=== PATIENT | male | born 1975 | race Caucasian/White ===

== ENCOUNTER 2020-01-30 07:34 | Outpatient (REF) | payer OTHER, SELFPAY ==
--- NOTE | 2020-01-30 07:37 | CT_ITS ---
EXAMINATION: CT ABDOMEN AND PELVIS WITHOUT CONTRAST CLINICAL INFORMATION: Renal calculus COMPARISON: CT abdomen and pelvis with IV contrast 12/20/2019, CT abdomen and pelvis noncontrast 12/15/2019. TECHNIQUE: Multidetector volumetric imaging was performed from the superior aspect of the liver through the pubic symphysis. Sagittal and coronal reformatted images were obtained on the technologist's workstation. No oral or intravenous contrast. This CT examination was performed using dose optimization techniques as appropriate, variously including the following: *Automated exposure control *Adjustment of mA and/or kV according to patient size (this includes techniques or standardized protocols for targeted exams where dose is matched to indication/reason for exam; i.e. extremities or head) *Use of iterative reconstruction technique DLP: 454 mGy-cm FINDINGS: LUNG BASES: The visualized lung bases are unremarkable. LIVER, GALLBLADDER, AND BILIARY TREE: The liver is normal in size, shape, and attenuation. No focal hepatic lesion or biliary ductal dilatation is present. The gallbladder is unremarkable with no evidence of radiopaque gallstones, gallbladder wall thickening, or obvious pericholecystic inflammatory changes. PANCREAS: Unremarkable. SPLEEN: Unremarkable. ADRENAL GLANDS: Unremarkable. KIDNEYS AND URETERS: There is a punctate nonobstructing calculus interpolar left kidney under 4 mm, coronal image 82, axial series 6/242. There are no other urinary tract calculi. No hydronephrosis, hydroureter, or perinephric stranding. The kidneys are normal in size and smooth in contour. There are several small cysts on the right, largest approximately 1.5 cm. BLADDER: Unremarkable. GASTROINTESTINAL TRACT: No bowel obstruction or inflammatory changes in the bowel or mesentery. Normal appendix. No ascites or fluid collection. There are stable benign coarse linear calcifications near the peritoneal reflections bilateral anterior lower quadrant similar to prior studies. ABDOMINAL WALL: Borderline fat-containing umbilical hernia under 2 cm. LYMPH NODES: No lymphadenopathy. VASCULAR: Unremarkable. PELVIC VISCERA: Unremarkable. OSSEOUS STRUCTURES: Unremarkable. CT/CT abdomen pelvis wo con IMPRESSION: Punctate nonobstructing calculus interpolar left kidney. No hydronephrosis, hydroureter, or perinephric stranding.
== END 2020-01-30 07:35 | disposition home or self-care (01) ==
LOC: HO.CT 07:34
PROVIDERS: PCP Internal Medicine; Visit Provider Urology
DX: N20.0 Calculus of kidney (principal)
CPT/HCPCS: 74176

== ENCOUNTER 2020-10-24 21:21 | Emergency (ER) | payer MEDICAID, SELFPAY ==
[2020-10-24 21:28] VITALS: BP 130/89; PULSE 99; RESP 20; TEMP 37.3; O2SAT 98; BMI 27.0
--- NOTE | 2020-10-24 21:54 | ED_ITS ---
HPI - General Adult General Chief complaint: Animal Bite Stated complaint: BITE Time Seen by Provider: 10/24/20 21:48 Source: patient Mode of arrival: ambulatory Limitations: no limitations History of Present Illness HPI narrative: Patient comes emergency room after finding a tick in his right thigh. Patient noticed the tick approximately 30 minutes prior to arrival. Patient states that he thinks that the tick might have been there for over 24 hours. Patient was in [facility] over the weekend, thinks that is where he got it. Patient has no symptoms. His removed the tick, came out with the head Related Data Allergies Allergy/AdvReac Type Severity Reaction Status Date / Time lactose [LACTOSE] Allergy Unknown DIARRHEA Verified 10/24/20 21:28 Review of Systems Review of Systems: Constitutional : No Weight loss, No Fever, No Chills, No Night Sweats, No Fatigue, No Malaise ENT/Mouth : No Hearing loss, No Ear Pain, No Nasal Congestion, No Sinus Pain, No Hoarseness, No sore throat, No Rhinorrhea, No Swallowing Difficulty Eyes: No Eye Pain, No Swelling, No Redness, No Foreign Body, No Discharge, No Vision Changes Cardiovascular : No Chest Pain, No SOB, No Dyspnea on Exertion, No Orthopnea, No Edema, No Palpitations Respiratory : No Cough, No Sputum, No Wheezing, No Smoke Exposure, No Dyspnea Gastrointestinal : No Nausea, No Vomiting, No Diarrhea, No Constipation, No abdominal Pain, No Hematochezia, No Melena Genitourinary : no irregular bleeding, No Dysuria, No Urinary Frequency, No Hematuria, No Urinary Incontinence, No Urgency, No Flank Pain, No Urinary Flow Changes, No Hesitancy Musculoskeletal : No joint pain, No Myalgias, No Joint Swelling Skin : No Skin Lesions, found tick in the right thigh Neuro : No Weakness, No Numbness, No Paresthesias, No Loss of Consciousness, No Dizziness, No Headache Psych : No Anxiety/Panic, No Depression, No SI/HI/AH/VH, No Social Issues, Heme/Lymph: No Bruising, No Bleeding,No Lymphadenopathy Endocrine : No Polyuria, No Polydipsia, No Temperature Intolerance [facility] Past Medical History Medical History [place] Surgical History History of Blanka fundoplication Social History Social History Advance Directives: No Advance Directives Information Provided: Yes Physical Exam Vital Signs: Vital Signs: Last Vital Signs Temp 99.1 F 10/24/20 21:28 Pulse 99 10/24/20 21:28 Resp 20 10/24/20 21:28 BP 130/89 10/24/20 21:28 Pulse Ox 98 10/24/20 21:28 Body Mass Index 27.0 Appearance: Alert. Oriented X3. No acute distress. Eyes: Pupils equal, round and reactive to light. ENT: Pharynx normal. Neck: Normal inspection. Neck supple. No lymph nodes noted. No crepitus CVS: Normal heart rate and rhythm. Pulses normal. Normal S1 and S2 Respiratory: No respiratory distress. Breath sounds normal. No Wheezing. No rales Abdomen: Soft and nontender. No rigidity. No distention. good BS x4 Skin: Skin warm and dry. Very mild petechial rash around the site where he found the tick, no erythema Extremities: No lower extremity edema. No lower extremity edema. No Lacer ations. No Rash Neuro: Oriented X 3. No motor deficit. No sensory deficit. Moving all extermities. No slurred speech. Course Course Course Narrative: I discussed with the patient that due to the insistence of Lyme disease in the area, we will go ahead and treat him prophylactically. If he develops any symptoms, he may need to get serology tests and follow-up with his primary care physician for treatment if needed. Patient was given emergency room 1 dose of 200 mg of doxycycline Discharge Plan Discharge Clinical Impression: Tick bite Qualifiers: Encounter type: initial encounter Site of tick bite: thigh Laterality: right Qualified Code(s): S70.361A - Insect bite (nonvenomous), right thigh, initial encounter Patient Disposition: Home, Self-Care Instructions: Tick Bite (ED)
== END 2020-10-24 22:05 | disposition home or self-care (01) ==
PROVIDERS: Emergency Provider Emergency Medicine; PCP Internal Medicine
DX: S70.361A Insect bite (nonvenomous), right thigh, initial encounter (principal); W57.XXXA Bitten or stung by nonvenomous insect and other nonvenomous arthropods, initial encounter; Y93.89 Activity, other specified; Y92.9 Unspecified place or not applicable; Y99.9 Unspecified external cause status
CPT/HCPCS: 99283

== ENCOUNTER 2020-11-17 11:08 | Outpatient (REF) | payer MEDICAID, SELFPAY ==
--- NOTE | ~2020-11-17 | US_ITS ---
EXAMINATION: US THYROID CLINICAL INFORMATION: Nontoxic single thyroid nodule. COMPARISON: None TECHNIQUE: Linear transducer bedoya-scale and color Doppler examination with attention to the region of the thyroid. FINDINGS: SIZE: Measurements of the thyroid lobes and nodules are given in sagittal, anteroposterior and transverse dimensions respectively. Right Thyroid Lobe: 4.8 x 1.9 x 2.2 cm, volume 10.2 mL. Parenchyma: The gland echotexture is homogeneous. Thyroid vascularity is normal. Left Thyroid Lobe: 4.7 x 1.5 x 1.6 cm, volume 5.6 mL. Parenchyma: The gland echotexture is homogeneous. Thyroid vascularity is normal. Isthmus: 0.4 cm in maximum AP dimension. Estimated total number of nodules greater than or equal to 1 cm: 0. Assistant [employer] nodules are described as follows: 1. Location: Left upper pole. Size: 0.3 x 0.2 x 0.2 cm, volume 0.005 mL. Nodule characteristics: Composition: Cystic(0). ACR TI-RADS total points: 0 ACR TI-RADS category: 1 2. Location: Left midpole. Size: 0.7 x 0.8 x 0.5 cm, volume 0.155 mL. Nodule characteristics: Composition: Solid (2). Echogenicity: Isoechoic (1). Shape: Not taller than wide (0). Margins: Smooth (0). Echogenic Foci: None (0). ACR TI-RADS total points: 3 ACR TI-RADS category: 3 3. Location: Left midpole. Size: 0.2 x 0.2 x 0.1 cm, volume 0.003 mL. Nodule characteristics: Composition: Cystic(0). Echogenicity: Anechoic (0). Shape: Not taller than wide (0). Margins: Smooth (0). Echogenic Foci: None (0). ACR TI-RADS total points: 0 ACR TI-RADS category: 1 NODES: No lymphadenopathy is seen in the tissue surrounding the thyroid gland. US/US thyroid IMPRESSION: Homogeneous thyroid parenchyma with normal vascularity. No thyromegaly. Small bilateral thyroid nodules which do not meet TI-RADS criteria for followup. The largest measures up to 0.8 cm with characteristics consistent with TI-RADS Category 3. ACR TI-RADS RECOMMENDATION REFERENCE: Ultrasound-guided fine-needle aspiration, followup ultrasound, no further followup. * TR1 (0 point) and TR 2 (2 points): No FNA or followup. * TR3 (3 points): FNA if more than or equal to 2.5 cm in maximum dimension, followup ultrasound in 1, 3 and 5 years if 1.5 to 2.4 cm in maximum dimension. * TR4 (4-6 points): FNA if more than or equal to 1.5 cm in maximum dimension, followup ultrasound in 1, 2, 3 and 5 years if 1 to 1.4 cm in maximum dimension. * TR5 (more than or equal to 7 points): FNA if more than or equal to 1 cm in maximum dimension, followup ultrasound every year for 5 years if 0.5 to 0.9 cm in maximum dimension. * TR3, TR4 or TR5 nodules that are below the size threshold for followup receive no followup.
[2020-11-17 12:51] LABS: Thyroid Stimulating Hormone 0.89 uIU/mL (0.32-4.0)
[2020-11-17 12:52] LABS: Free T4 (Free Thyroxine) 0.92 ng/dL (0.71-1.85)
== END 2020-11-17 11:09 | disposition home or self-care (01) ==
LOC: HO.US 11:08
PROVIDERS: PCP Internal Medicine; Visit Provider Physician Assistant
DX: E04.1 Nontoxic single thyroid nodule (principal)
CPT/HCPCS: 36415; 76536; 84439; 84443

== ENCOUNTER 2020-11-24 07:07 | Emergency (ER) | payer MEDICAID, SELFPAY ==
--- NOTE | ~2020-11-24 | XR_ITS ---
EXAMINATION: XR FOOT, LEFT CLINICAL INFORMATION: Left great toe pain status post blunt trauma. COMPARISON: None TECHNIQUE: AP, lateral, and oblique views of the left foot. FINDINGS: There is no acute fracture or dislocation. The joint spaces are unremarkable. The tarsal bones are normally aligned. There is a small retrocalcaneal spur. The soft tissues are unremarkable. There is no radiopaque foreign body. XR/XR foot LT min 3V IMPRESSION: 1. No overt acute abnormality in the first digit. 2. Small degenerative retrocalcaneal spur.
[2020-11-24 07:45] VITALS: BP 104/75; PULSE 96; RESP 18; TEMP 37; O2SAT 98; BMI 27.8
[2020-11-24 08:12] VITALS: BP 119/80; PULSE 78; RESP 18; TEMP 36.8; O2SAT 98
[2020-11-24 08:23] VITALS: BP 119/80; PULSE 78; RESP 18
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
== END 2020-11-24 09:43 | disposition home or self-care (01) ==
PROVIDERS: Emergency Provider Emergency Medicine; PCP Internal Medicine
DX: S93.502A Unspecified sprain of left great toe, initial encounter (principal); S90.212A Contusion of left great toe with damage to nail, initial encounter; W20.8XXA Other cause of strike by thrown, projected or falling object, initial encounter; Y93.89 Activity, other specified; Y92.9 Unspecified place or not applicable; Y99.9 Unspecified external cause status
CPT/HCPCS: 11740; 73630; 99283; 99284

== ENCOUNTER 2020-12-16 12:00 | Outpatient (REF) | payer MEDICAID, SELFPAY ==
[2020-12-17 08:30] LABS: Lyme Abs Screen <0.90 index
== END 2020-12-16 12:01 | disposition home or self-care (01) ==
LOC: HO.MANLDS 12:00
PROVIDERS: PCP Physician Assistant; Visit Provider Physician Assistant
DX: T14.8XXA Other injury of unspecified body region, initial encounter (principal); W57.XXXA Bitten or stung by nonvenomous insect and other nonvenomous arthropods, initial encounter
CPT/HCPCS: 36415; 86617; 86618

== ENCOUNTER 2021-05-05 12:14 | Outpatient (REF) | payer MEDICAID, SELFPAY ==
[2021-05-05 13:39] LABS: Appearance Urine CLEAR; Glucose Urine UA NEG (NEG); Leukocyte Esterase Urine NEG (NEG); Nitrite Urine NEG (NEG); PH 5.5 (5.0-8.0); Specific Gravity - Urine <= 1.005 (1.005-1.025); Urine Blood NEG (NEG); Urine Ketones NEG (NEG); Urine Protein NEG (NEG-TRACE)
[2021-05-05 13:41] LABS: Color Urine COLORLESS
== END 2021-05-05 12:15 | disposition home or self-care (01) ==
LOC: HO.LAB 12:14
PROVIDERS: PCP Internal Medicine; Visit Provider Physician Assistant
DX: R30.9 Painful micturition, unspecified (principal)
CPT/HCPCS: 81003

== ENCOUNTER 2021-05-13 08:38 | Outpatient (REF) | payer MEDICAID, SELFPAY ==
[2021-05-13 10:16] LABS: Alanine Aminotransferase 27 U/L (0-40); Albumin Level 4.7 g/dL (3.5-5.0); Alkaline Phosphatase 49 U/L (39-117); Anion Gap 11 (12-20); Aspartate Amino Transferase 20 U/L (5-37); Bilirubin Total 0.6 mg/dL (0.0-1.0); Blood Urea Nitrogen 13 mg/dL (9-16); Calcium 9.8 mg/dL (8.4-10.2); Carbon Dioxide 29 mmol/L (22-29); Chloride 104 mmol/L (96-108); Estimated Glomerular Filt Rate > 60; Glucose Random 97 mg/dL (60-115); Potassium 4.9 mmol/L (3.3-5.1); Sodium 139 mmol/L (135-145); Total Protein 7.4 g/dL (6.5-8.0)
[2021-05-13 12:36] LABS: Cortisol Random 8.1 ug/dL
[2021-05-14 15:51] LABS: Absolute CD3 Count 1294 cells/uL (840-3060); Absolute CD4 Count 882 cells/uL (490-1740); Absolute CD8 Count 392 cells/uL (180-1170); Absolute Lymphocytes 1847 cells/uL (850-3900); CD4 CD8 Ratio 2.25 (0.86-5.00); Percent CD3 Cells 70 % (57-85); Percent CD4 Cells 48 % (30-61); Percent CD8 Cells 21 % (12-42)
[2021-05-14 21:21] LABS: Adrenocorticotropic Hormone 11 pg/mL (6-50)
[2021-05-15 06:12] LABS: Cytomegalovirus Ab IgG <0.60 U/mL; Cytomegalovirus Ab IgM <30.00 AU/mL
[2021-05-15 06:21] LABS: EBV-VCA IgG Ab <18.00 U/mL; EBV-VCA IgM Ab <36.00 U/mL; Epstein Barr Virus Early Ag Ab <9.00 U/mL
[2021-05-15 13:51] LABS: Immunoglobulin A 348 mg/dL (47-310); Immunoglobulin M 112 mg/dL (50-300)
[2021-05-16 21:00] LABS: DHEA Sulfate 224 mcg/dL (70-495)
[2021-05-17 12:42] LABS: IGF-1 (Somatomedin C) 105 ng/mL (52-328); IGF-1 Z Score (Male) -0.6 SD (-2.0 - +2.0)
[2021-05-18 21:17] LABS: Immunoglobulin G Subclass 1 409 mg/dL (382-929); Immunoglobulin G Subclass 2 362 mg/dL (241-700); Immunoglobulin G Subclass 3 22 mg/dL (22-178); Immunoglobulin G Subclass 4 50.5 mg/dL (4-86); Immunoglobulin G Total 980 mg/dL (600-1640)
[2021-05-19 15:32] LABS: Testosterone, Free 89.8 pg/mL (35.0-155.0); Testosterone, Total 483 ng/dL (250-1100)
== END 2021-05-13 08:39 | disposition home or self-care (01) ==
LOC: HO.LAB 08:38
PROVIDERS: PCP Internal Medicine; Visit Provider Allergy & Immunology Allergy
DX: R53.83 Other fatigue (principal); B33.8 Other specified viral diseases
CPT/HCPCS: 36415; 80053; 82024; 82533; 82627; 82784; 84305; 84402; 84403; 86359; 86360; 86644; 86645; 86663; 86664; 86665

== ENCOUNTER 2022-04-06 07:23 | Outpatient (REF) | payer MEDICAID, SELFPAY ==
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
--- NOTE | ~2022-04-06 | XR_ITS ---
EXAMINATION: XR FACIAL BONES CLINICAL INFORMATION: Injury, pain. COMPARISON: None TECHNIQUE: 4 views of the facial bones were obtained. FINDINGS: There is no visible fracture. The orbital rims and floors, nasal bridge, and visualized facial bones appear intact. Zygomatic arches are unremarkable. There is no orbital emphysema. No air-fluid levels sinuses. XR/XR facial bones min 3V IMPRESSION: 1. No visible fracture. 2. No air-fluid levels.
== END 2022-04-06 07:24 | disposition home or self-care (01) ==
LOC: HO.XRAY 07:23
PROVIDERS: PCP Internal Medicine; Visit Provider Physician Assistant
DX: S07.0XXA Crushing injury of face, initial encounter (principal); R07.81 Pleurodynia; X58.XXXA Exposure to other specified factors, initial encounter; Y93.9 Activity, unspecified; Y92.9 Unspecified place or not applicable; Y99.9 Unspecified external cause status
CPT/HCPCS: 70150; 71101

== ENCOUNTER 2022-05-12 09:06 | Outpatient (REF) | payer MEDICAID, SELFPAY ==
[2022-05-12 10:56] LABS: Alanine Aminotransferase 32 U/L (0-40); Albumin Level 4.8 g/dL (3.5-5.0); Alkaline Phosphatase 48 U/L (39-117); Anion Gap 15 (12-20); Aspartate Amino Transferase 26 U/L (5-37); Bilirubin Total 0.9 mg/dL (0.0-1.0); Blood Urea Nitrogen 10 mg/dL (9-16); Calcium 9.7 mg/dL (8.4-10.2); Carbon Dioxide 27 mmol/L (22-29); Chloride 103 mmol/L (96-108); Estimated Glomerular Filt Rate > 60; Glucose Random 101 mg/dL (60-115); Potassium 4.8 mmol/L (3.3-5.1); Sodium 140 mmol/L (135-145); Total Protein 7.3 g/dL (6.5-8.0)
[2022-05-19 17:18] LABS: Progesterone <0.1 ng/mL (< OR = 0.2)
[2022-05-20 10:08] LABS: Pregnenolone, LC/MS 61 ng/dL (22-237)
[2022-05-20 13:17] LABS: IGF-1 (Somatomedin C) 196 ng/mL (52-328); IGF-1 Z Score (Male) 0.7 SD (-2.0 - +2.0)
[2022-05-20 18:18] LABS: Testosterone, Free 90.6 pg/mL (35.0-155.0); Testosterone, Total 559 ng/dL (250-1100)
[2022-05-29 00:29] LABS: DHEA Sulfate 297 mcg/dL (61-442); Estradiol Free 0.73 pg/mL; Estradiol, Ultrasensitive 37 pg/mL (< OR = 29)
== END 2022-05-12 09:07 | disposition home or self-care (01) ==
LOC: HO.LAB 09:06
PROVIDERS: PCP Internal Medicine; Visit Provider Allergy & Immunology Allergy
DX: E29.1 Testicular hypofunction (principal)
CPT/HCPCS: 36415; 80053; 82627; 82670; 82681; 83735; 84143; 84144; 84305; 84402; 84403

== ENCOUNTER 2022-08-24 11:54 | Outpatient (REF) | payer MEDICAID, SELFPAY ==
[2022-08-24 15:35] LABS: Prostate Specific Antigen 3.84 ng/mL (<0.05-4.0)
== END 2022-08-24 11:55 | disposition home or self-care (01) ==
LOC: HO.MANLDS 11:54
PROVIDERS: Visit Provider Physician Assistant
DX: Z12.5 Encounter for screening for malignant neoplasm of prostate (principal)
CPT/HCPCS: 36415; 84153

== ENCOUNTER 2022-11-26 11:03 | Emergency (ER) | payer MEDICAID, SELFPAY ==
--- NOTE | ~2022-11-26 | CT_ITS ---
EXAMINATION: CT ABDOMEN AND PELVIS WITHOUT CONTRAST CLINICAL INFORMATION: Left lower quadrant pain. COMPARISON: CT abdomen and pelvis dated 01/30/2020. TECHNIQUE: Multidetector volumetric imaging was performed from the superior aspect of the liver through the pubic symphysis. Sagittal and coronal reformatted images were obtained on the technologist's workstation. This CT examination was performed using dose optimization techniques as appropriate, variously including the following: *Automated exposure control *Adjustment of mA and/or kV according to patient size (this includes techniques or standardized protocols for targeted exams where dose is matched to indication/reason for exam; i.e. extremities or head) *Use of iterative reconstruction technique DLP: 1081 mGy-cm FINDINGS: LUNG BASES: The visualized lung bases are unremarkable. LIVER, GALLBLADDER, AND BILIARY TREE: The liver is normal in size, shape, and attenuation. Within the posterior segment of the right hepatic lobe (4:84), a 4 mm low-attenuation probable cyst is seen. This is stable from the contrast-enhanced CT dated 04/23/2019 (4:123), and it is considered benign. No focal hepatic lesion or biliary ductal dilatation is present. The gallbladder is unremarkable, with no evidence of radiopaque gallstones, gallbladder wall thickening or obvious pericholecystic inflammatory change. PANCREAS: Unremarkable. SPLEEN: Unremarkable. ADRENAL GLANDS: Unremarkable. KIDNEYS AND URETERS: The kidneys are normal in size, shape and attenuation. At the interpolar aspect, a 4 mm nonobstructing calculus is seen. No further urinary calculus is seen, and there is no obstructive uropathy. No perinephric stranding. BLADDER: Unremarkable. GASTROINTESTINAL TRACT: There is mild diverticulosis, without acute diverticulitis. No bowel obstruction, free intraperitoneal air or abscess is seen. There is no focal bowel wall thickening. The vermiform appendix appears normal. ABDOMINAL WALL: There is a small fat-containing umbilical hernia. There are postoperative changes suggesting possible prior bilateral inguinal herniorrhaphies. Please correlate with the patient's past surgical history. LYMPH NODES: Normal. VASCULAR: Unremarkable. PELVIC VISCERA: The prostate and seminal vesicles are unremarkable. OSSEOUS STRUCTURES: There is a mild L1 anterior wedge compression fracture. This is unchanged from 02/03/2019. No acute or aggressive osseous abnormality is seen. CT/CT abdomen pelvis wo IV con IMPRESSION: 1. There is mild diverticulosis, without acute diverticulitis. No bowel obstruction, free air or abscess is seen. There is no appendicitis. 2. A 4 mm nonobstructing mid left renal calculus is seen. No further urinary calculus is seen, and there is no obstructive uropathy. 3. A 4 mm benign, stable probable cyst is seen within the posterior segment of the right hepatic lobe. This requires no imaging follow-up. 4. There is a small fat-containing umbilical hernia. 5. There is a chronic mild L1 anterior wedge compression fracture. No acute or aggressive osseous finding is noted. Fleischner guidelines were followed.
[2022-11-26 11:27] VITALS: BP 138/90; PULSE 103; RESP 20; TEMP 37.2; O2SAT 98; BMI 30.5
--- NOTE | 2022-11-26 11:27 | ED_ITS ---
HPI - Abdominal Pain General Chief Complaint: Abdominal Pain Stated Complaint: abd pain Time Seen by Provider: 11/26/22 12:28 Source: patient Mode of arrival: ambulatory History of Present Illness HPI narrative: 47-year-old male who presents with abdominal discomfort for approximately 1 week this been associated with some mild nausea and early satiety but otherwise has had some diarrhea and continues to pass gas but denies any fevers or chills. Related Data Previous Rx's Medication Instructions Recorded acetaminophen 500 mg tablet 1,000 mg PO QID PRN fever or pain 11/24/20 (Tylenol Extra Strength) #14 tabs ibuprofen 800 mg tablet 800 mg PO Q8H PRN pain #14 tabs 11/24/20 oxycodone-acetaminophen 5 mg-325 1 tab PO Q6H PRN pain #10 tabs 11/24/20 mg tablet (Percocet) Allergies Allergy/AdvReac Type Severity Reaction Status Date / Time lactose [LACTOSE] Allergy Unknown DIARRHEA Verified 11/26/22 11:32 Review of Systems Review of Systems Pertinent positives and negatives as stated in HPI PMFSH Past Medical History Source: nursing notes reviewed Medical History [place] Surgical History History of Alta fundoplication Social History Social History Alcohol intake: never Patient Tobacco Use Status: Never used Tobacco Smoked in Last 30 Days: No Use of substances other than those prescribed or required for medical reasons: No Substance Use Type: Marijuana Substance Use Frequency: Occasionally Last Used Substance: Weeks (ago) Advance Directives: No Advance Directives Information Provided: No Physical Exam ED Vital Signs: Vital Signs - 24 hr 11/26/22 11:27 11/26/22 12:55 11/26/22 14:14 Temperature 98.9 F 99.7 F Pulse Rate 103 H 91 85 Respiratory Rate 20 16 18 Blood Pressure 138/90 H 127/83 117/78 Pulse Oximetry 98 98 98 Oxygen Delivery Method Room Air Room Air Room Air BMI result Body Mass Index 30.5 VITAL SIGNS: Reviewed. GENERAL: Well developed, well nourished, in no acute distress. HEAD: Normocephalic/atraumatic EYES: PERRLA, EOMI EARS: Ext canals without abnormality NOSE: Nares patent bilateral OROPHARYNX: no oral lesions noted, posterior pharynx clear NECK: Supple, no adenopathy LUNGS: Normal breath sounds. No adventitious sounds or accessory muscle use. SpO2<98> CARDIOVASCULAR: Regular rate and rhythm without noted murmurs ABDOMEN: Soft, very mild epigastric discomfort without rebound, non-distended with bowel sounds. MUSCULOSKELETAL: No tenderness, deformities, or effusions noted on gross inspection. EXTREMITIES: No cyanosis, clubbing or edema. SKIN: Inspection of the skin reveals no rashes NEUROLOGIC: Alert and oriented x 4. Strength and sensation to light touch were grossly intact x 4. Course Course Course Narrative: This is an RME: Additional HPI, ROS, PE not included below will be deferred to primary provider. Patient is a 47-year-old male presents emergency department for evaluation of abdominal pain. Rpeorts 6 days ago he sustained a head injury on a car door and developed surren onset LUQ ABD pain after that. Called PCP 4 days ago and advised to monitor and come to ED if symptoms worsen, with concern for obstruction secondary to Lisinopril. Pain has been progressively worsening. Last night severe L lower ABD pain radiating across, diarrhea, dizziness, nausea. Denies vomiting, fevers, chills. Reports hx of alta fundoplication, multiple hernia repairs with mesh. Plan: labs, CT AP Medical Decision Making Medical Decision Making MDM Narrative: 47-year-old male with history and clinical presentation, DDX: Gastritis, gastroenteritis, food poisoning, very low clinical suspicion for SBO/colitis and no clinical suspicion for cholecystitis. I reviewed all investigations and hematologic indices do not demonstrate evidence to suggest infection as there is no leukocytosis, left shift, patient has remained afebrile, no thrombocytopenia in hemoglobin is mildly elevated at 18.3 and will recommend that he follow-up with his primary care doctor for further evaluation. Chemistry indices are negative for electrolyte or liver enzyme abnormalities, there is no ELÍAS. Urinalysis negative for UTI or hematuria. CT scan is negative for evidence of colitis/obstruction, no evidence of diverticulitis and otherwise my interpretation is in agreement with radiology's impression. My interpretation is that patient may be suffering gastritis and may be a small component gastroenteritis and would benefit from further evaluation in the outpatient setting by Gastroenterology. Differential Diagnosis Differential Diagnoses: The differential diagnosis associated with the presentation includes Please see the discussion above Admission/Observation Consideration of admission/observation: Escalation of care including admission/observation considered Please see the discussion above Lab Data MDM Lab Attestation statement: I reviewed the patient's lab results. Please see the discussion above 11/26/22 11:42 11/26/22 11:42 Labs: Lab Results 11/26/22 11/26/22 11/26/22 Range/Units 11:42 11:42 11:42 WBC 7.6 (4.8-10.8) X10*3/uL RBC 6.18 H (4.60-5.80) X10*6/uL Hgb 18.3 H (14.0-18.0) g/dl Hct 53.5 H (42.0-52.0) % MCV 86.6 (80.0-98.0) fL MCH 29.6 (27.0-33.0) pg MCHC 34.2 (31.0-36.0) g/dl RDW 11.7 (11.0-16.0) % Plt Count 249 (160-400) X10*3/uL MPV 9.6 (9.4-12.4) fL Immature Gran % (Auto) 0.4 (0.0-0.4) % Neut % (Auto) 69.7 (45-73) % Lymph % (Auto) 22.7 (20-40) % Mcnairy % (Auto) 5.5 (2-11) % Eos % (Auto) 1.3 (0-4) % Baso % (Auto) 0.4 (0-2) % Lymph # (Auto) 1.7 (1.2-4.9) X10*3/uL Mcnairy # (Auto) 0.4 (0.1-1.2) X10*3/uL Eos # (Auto) 0.1 (0.0-0.4) X10*3/uL Baso # (Auto) 0.0 (0.0-0.2) X10*3/uL Abs Immat Gran (auto) 0.03 (0.00-0.03) X10*3/uL Absolute Neuts (auto) 5.3 (2.0-8.3) x10*3/uL Absolute Nucleated RBC 0.000 (0.0-0.012) X10*3/uL Nucleated RBC % (auto) 0.0 (0.0-0.2) /100WBC Sodium 137 (135-145) mmol/L Potassium 4.1 (3.3-5.1) mmol/L Chloride 103 (96-108) mmol/L Carbon Dioxide 27 (22-29) mmol/L Anion Gap 11 L (12-20) BUN 10 (9-16) mg/dL Creatinine 0.96 (0.5-1.4) mg/dL Estim Creat Clear Calc 109.7 Estimated GFR > 60 Random Glucose 97 (60-115) mg/dL Lactic Acid 1.5 (0.5-2.0) mmol/L Calcium 9.4 (8.4-10.2) mg/dL Total Bilirubin 0.5 (0.0-1.0) mg/dL AST 18 (5-37) U/L ALT 20 (0-40) U/L Alkaline Phosphatase 47 (39-117) U/L Total Protein 7.4 (6.5-8.0) g/dL Albumin 4.6 (3.5-5.0) g/dL Lipase 28 (8-78) U/L Urine Color Urine Appearance Urine pH (5.0-9.0) Ur Specific Hollywood (1.005-1.025) Urine Protein (Neg-Trace) mg/dL Urine Glucose (UA) (Negative) mg/dL Urine Ketones (Negative) mg/dL Urine Blood (Negative) Urine Nitrite (Negative) Ur Leukocyte Esterase (Negative) 11/26/22 Range/Units 11:47 WBC (4.8-10.8) X10*3/uL RBC (4.60-5.80) X10*6/uL Hgb (14.0-18.0) g/dl Hct (42.0-52.0) % MCV (80.0-98.0) fL MCH (27.0-33.0) pg MCHC (31.0-36.0) g/dl RDW (11.0-16.0) % Plt Count (160-400) X10*3/uL MPV (9.4-12.4) fL Immature Gran % (Auto) (0.0-0.4) % Neut % (Auto) (45-73) % Lymph % (Auto) (20-40) % Mcnairy % (Auto) (2-11) % Eos % (Auto) (0-4) % Baso % (Auto) (0-2) % Lymph # (Auto) (1.2-4.9) X10*3/uL Mcnairy # (Auto) (0.1-1.2) X10*3/uL Eos # (Auto) (0.0-0.4) X10*3/uL Baso # (Auto) (0.0-0.2) X10*3/uL Abs Immat Gran (auto) (0.00-0.03) X10*3/uL Absolute Neuts (auto) (2.0-8.3) x10*3/uL Absolute Nucleated RBC (0.0-0.012) X10*3/uL Nucleated RBC % (auto) (0.0-0.2) /100WBC Sodium (135-145) mmol/L Potassium (3.3-5.1) mmol/L Chloride (96-108) mmol/L Carbon Dioxide (22-29) mmol/L Anion Gap (12-20) BUN (9-16) mg/dL Creatinine (0.5-1.4) mg/dL Estim Creat Clear Calc Estimated GFR Random Glucose (60-115) mg/dL Lactic Acid (0.5-2.0) mmol/L Calcium (8.4-10.2) mg/dL Total Bilirubin (0.0-1.0) mg/dL AST (5-37) U/L ALT (0-40) U/L Alkaline Phosphatase (39-117) U/L Total Protein (6.5-8.0) g/dL Albumin (3.5-5.0) g/dL Lipase (8-78) U/L Urine Color Yellow Urine Appearance Clear Urine pH 6.0 (5.0-9.0) Ur Specific Hollywood 1.020 (1.005-1.025) Urine Protein Negative (Neg-Trace) mg/dL Urine Glucose (UA) Negative (Negative) mg/dL Urine Ketones Negative (Negative) mg/dL Urine Blood Negative (Negative) Urine Nitrite Negative (Negative) Ur Leukocyte Esterase Negative (Negative) Radiology Impression Radiologist Impression: Please see the discussion above External Record Review External record reviewed: Outpatient record, Prior outpatient labs and Prior outpatient radiology Discharge Plan Discharge Clinical Impression: Gastritis Patient Disposition: Home, Self-Care Instructions: Gastritis (ED), Diet for Stomach Ulcers and Gastritis (ED) Additional Instructions: 1. Resume all home medications as prescribed. 2. Please follow-up with your primary care provider Monday morning and discuss the referral for Gastroenterology in further evaluation of your stomach. Return to the ER for any worsening symptoms. Prescriptions: No Action ibuprofen 800 mg tablet 800 mg PO Q8H PRN (Reason: pain) Qty: 14 0RF acetaminophen [Tylenol Extra Strength] 500 mg tablet 1,000 mg PO QID PRN (Reason: fever or pain) Qty: 14 0RF oxycodone-acetaminophen [Percocet] 5-325 mg tablet 1 tab PO Q6H PRN (Reason: pain) Qty: 10 0RF Referrals: Sina Gonzales MD [Primary Care Provider] -
[2022-11-26 11:48] LABS: MANUAL DIFF FLAG NO
[2022-11-26 11:50] LABS: Basophils Percent Auto 0.4 % (0-2); Eosinophils Absolute Auto 0.1 X10*3/uL (0.0-0.4); Eosinophils Percent Auto 1.3 % (0-4); Hematocrit 53.5 % (42.0-52.0); Hemoglobin 18.3 g/dl (14.0-18.0); Imm Gran Abs Auto 0.03 X10*3/uL (0.00-0.03); Imm Gran Pct Auto 0.4 % (0.0-0.4); Lymphocytes Absolute Auto 1.7 X10*3/uL (1.2-4.9); Lymphocytes Percent Auto 22.7 % (20-40); Mean Corpuscular HGB Conc 34.2 g/dl (31.0-36.0); Mean Corpuscular Hemoglobin 29.6 pg (27.0-33.0); Mean Corpuscular Volume 86.6 fL (80.0-98.0); Mean Platelet Volume 9.6 fL (9.4-12.4); Monocytes Absolute Auto 0.4 X10*3/uL (0.1-1.2); Monocytes Percent Auto 5.5 % (2-11); Neutrophils Absolute Auto 5.3 x10*3/uL (2.0-8.3); Neutrophils Percent Auto 69.7 % (45-73); Platelet Count 249 X10*3/uL (160-400); Red Blood Count 6.18 X10*6/uL (4.60-5.80); Red Cell Distribution Width 11.7 % (11.0-16.0); White Blood Count 7.6 X10*3/uL (4.8-10.8)
[2022-11-26 12:00] LABS: Lactic Acid 1.5 mmol/L (0.5-2.0)
[2022-11-26 12:05] LABS: Alanine Aminotransferase 20 U/L (0-40); Albumin Level 4.6 g/dL (3.5-5.0); Alkaline Phosphatase 47 U/L (39-117); Anion Gap 11 (12-20); Aspartate Amino Transferase 18 U/L (5-37); Bilirubin Total 0.5 mg/dL (0.0-1.0); Blood Urea Nitrogen 10 mg/dL (9-16); Calcium 9.4 mg/dL (8.4-10.2); Carbon Dioxide 27 mmol/L (22-29); Chloride 103 mmol/L (96-108); Creatinine Clr Calc Pharmacy 109.7; Estimated Glomerular Filt Rate > 60; Glucose Random 97 mg/dL (60-115); Lipase 28 U/L (8-78); Potassium 4.1 mmol/L (3.3-5.1); Sodium 137 mmol/L (135-145); Total Protein 7.4 g/dL (6.5-8.0)
[2022-11-26 12:22] LABS: Appearance Urine Clear; Color Urine Yellow; Glucose Urine UA Negative (Negative); Leukocyte Esterase Urine Negative (Negative); Nitrite Urine Negative (Negative); Urine Blood Negative (Negative); Urine Ketones Negative (Negative); Urine Protein Negative (Neg-Trace)
--- OUTSIDE RECORDS SUMMARY | 2022-11-26 12:34 | XMS_ITS | Continuity of Care Document ---
Author Name Unknown Organization [facility] Address [address] [facility] [place] [address]- Care Team Providers Care Center Medical And Lab Director Name Role Phone Sina Gonzales DO Errol Primary Care Physician [place] [facility] [place] 09/08/21 - 10/08/21 [facility] [address] [place], [place] [address] Allergies, Adverse Reactions, Alerts Substance Reaction Severity Status HYDROcodone Active Medications cyclobenzaprine 5 mg oral tablet See Instructions, 0.5 tab prn pain, 0 Refills, Maintenance Start Date: 12/11/12 Status: Ordered Flomax 0.4 mg oral capsule 0.4 mg, 1, capsule, By Mouth, Daily, # 30 capsule, Refills 0, Maintenance, 11/04/20 9:40:00 EDT, Partial fill upon patient request if the prescription is for a schedule II opioid drug. Start Date: 11/04/20 Status: Ordered HCTZ 3.125 mg HCTZ 3.125 mg, Daily, Refills 0, Maintenance, 11/04/20 9:42:00 EDT, Supply Start Date: 11/04/20 Status: Ordered lisinopril 2.5 mg oral tablet 2.5 mg, 1, tablet, By Mouth, Daily, total 7.5mg, # 30 tablet, Refills 0, Maintenance, 11/04/20 9:40:00 EDT, Partial fill upon patient request if the prescription is for a schedule II opioid drug. Start Date: 11/04/20 Status: Ordered lisinopril 5 mg oral tablet 5 mg, 1, tablet, By Mouth, Daily, total 7.5mg, # 30 tablet, Refills 0, Maintenance, 11/04/20 9:40:00 EDT, Partial fill upon patient request if the prescription is for a schedule II opioid drug. Start Date: 11/04/20 Status: Ordered Misc Rx Refills 0, Maintenance, Probiotic 1 tab daily, 12/11/12 7:47:51, Compound Start Date: 12/11/12 Status: Ordered ProAir HFA 2 puffs, Inhalation, 4 times a day, PRN Pain , Moderate, 0 Refills, Maintenance, 12/18/13 8:01:33 Start Date: 12/18/13 Status: Ordered Vitamin B12 500 mcg/mL injectable solution 0 Refills, Maintenance, 11/04/20 9:41:00 EDT, Partial fill upon patient request if the prescriptionis for a schedule II opioid drug. Start Date: 11/04/20 Stop Date: 11/11/20 Status: Ordered Vitamin D3 5000 intl units oral capsule 1 capsule = 125 mcg, By Mouth, Daily, with food, # 100 capsule, 0 Refills, Maintenance, 11/04/20 9:41:00 EDT, Capsule, Partial fill upon patient request if the prescription is for a schedule II opioid drug. Start Date: 11/04/20 Status: Ordered Problem List Condition Effective Dates Status Health Status Inform ant Low back pain(Confirmed) Active
--- OUTSIDE RECORDS SUMMARY | 2022-11-26 12:34 | XMS_ITS | Continuity of Care Document ---
Author Name Unknown Organization [facility] Medicine Address [address] [place] [address]- Care Team Providers Care Promotional Marketing Analyst Name Role Phone Sina Gonzales DO Primary Care Physician [phone] Encounter [facility] [place] Date(s): 03/01/21 - 03/31/[address] [id number] Allergies, Adverse Reactions, Alerts Substance Reaction Severity [...]
--- OUTSIDE RECORDS SUMMARY | 2022-11-26 12:34 | XMS_ITS | Continuity of Care Document ---
Author Name Unknown Organization [facility] Medicine Address [address] [place] [address]- Care Team Providers Care Forestry Fire Aid Name Role Phone Sina Gonzales DO Primary Care Physician [place] [facility] [place] - 10/20/21 [facility] Medicine [address] [place] [id number] Allergies, Adverse Reactions, Alerts Substance Reaction [...]
--- OUTSIDE RECORDS SUMMARY | 2022-11-26 12:34 | XMS_ITS | Continuity of Care Document ---
Author Name Unknown Organization [facility] Address [address] [facility] [place] [address]- Care Team Providers Care Electric Motor Assembler Name Role Phone Sina Gonzales DO A Primary Care Physician [place] [facility] [place](s[place] 11/24/20 - 12/24/20 [facility]rolog [address] [place] [address]- Allergies, Adverse Reactions, Alerts Substance Reaction Severity [...]
--- OUTSIDE RECORDS SUMMARY | 2022-11-26 12:34 | XMS_ITS | Continuity of Care Document ---
Author Name Unknown Organization [facility] Address [address] [facility] [place] [address]- Care Team Providers Care Teacher Education Director Name Role Phone Sina Gonzales DO Primary Care Physician En[place] [facility] [place] Date(s): 02/04/21 - 02/11/21 [facility] [address] [place] [address]- Attending Physician: Luís Shultz MD Admitting Physician: Luís Shultz MD Referring Physician: Sina Gonzales DO Allergies, Adverse Reactions, Alerts Substance Reaction Severity Status HYDROcodone Active Medications betamethasone topical dipropionate 0.05% cream 1 application, Topically, Daily, for 14 days, # 15 Gm, 0 Refills, Acute 02/22/21 12:58:00 EST, 02/08/21 12:58:00 EST, Cream, [facility], Partial fill upon patient request if the prescription is for a schedule II opioid drug., 1 applicati... Start Date: 02/08/21 Stop Date: 02/22/21 Status: Ordered cyclobenzaprine 5 mg oral tablet See Instructions, 0.5 tab prn pain, 0 Refills, Maintenance Start Date: 12/11/12 Status: Ordered econazole 1% topical cream 1 application, Topically, 2 times a day, for 14 days, # 15 Gm, 0 Refills, Acute 02/18/21 11:18:00 EST, 02/04/21 11:18:00 EDT, Cream, [facility], Partial fill upon patient request ifthe prescription is for a schedule II opioid drug., 1 a... Start Date: 02/04/21 Stop Date: 02/18/21 Status: Ordered Flomax 0.4 mg oral capsule [...] Status Inform ant Low back pain(Confirmed) Active Vital Signs Most recent to oldest [Reference Range]: 1 Height 170.1 cm (02/04/21 11:00 AM)
--- OUTSIDE RECORDS SUMMARY | 2022-11-26 12:34 | XMS_ITS | Continuity of Care Document ---
Author Name Unknown Organization [facility] Address [address] [facility] [place] [address]- Care Team Providers Care Film Sound Engineer Name Role Phone Sina Gonzales DO A Primary Care Physician Encounter [facility] [place] Date(s): 03/03/21 - 04/02/21 [facility] [address] [place] [address]- Allergies, Adverse Reactions, Alerts Substance Reaction Severity [...]
--- OUTSIDE RECORDS SUMMARY | 2022-11-26 12:34 | XMS_ITS | Continuity of Care Document ---
Author Name Unknown Organization [facility] Address [address] [facility] [place] [address]- Care Team Providers Care Commercial Helicopter Pilot Name Role Phone Sina Gonzales DO Errol Primary Care Physician [phone] En[place] [facility] [place] Date(s): 12/02/20 - 01/01/21 [facility] [address] [place] [address]- Attending Physician: Jessica Dewitt Admitting Physician: Jesscia Dewitt Referring Physician: AdmtrJessica Allergies, Adverse Reactions, Alerts Substance Reaction Severity [...]
--- OUTSIDE RECORDS SUMMARY | 2022-11-26 12:34 | XMS_ITS | Continuity of Care Document ---
Author Name Unknown Organization [facility] Address [address] [place] [address]- Care Team Providers Care Online Merchandising Coordinator Name Role Phone Sina Gonzales DO Errol Primary Care Physician En[place] [facility] [place] Date(s): 05/05/21 - 06/04/21 [facility] [address] [place], [place] [address] Allergies, Adverse Reactions, Alerts Substance [...]
--- OUTSIDE RECORDS SUMMARY | 2022-11-26 12:34 | XMS_ITS | Continuity of Care Document ---
Author Name Unknown Organization [facility] Medicine Address [address] [place] [address]- Care Team Providers Care Director Mortgage Name Role Phone Sina Gonzales DO Primary Care Physician [phone] [place] [facility] [place] 02/15/21 - 03/17/21 [facility] Medicine [address] [place] [id number] Allergies, Adverse Reactions, Alerts Substance Reaction [...]
--- OUTSIDE RECORDS SUMMARY | 2022-11-26 12:34 | XMS_ITS | Continuity of Care Document ---
Author Name Unknown Organization [facility] Address [address] [facility] [address]- Care Team Providers Care Duty Manager Name Role Phone Sina Gonzales DO Primary Care Physician En[place] [facility] [place] Date(s): 12/02/20 - 12/09/20 [facility] [address] [place] [address]- Attending Physician: Luís Shultz MD Admitting Physician: [...]
--- OUTSIDE RECORDS SUMMARY | 2022-11-26 12:34 | XMS_ITS | Continuity of Care Document ---
Author Name Unknown Organization [facility] [address] [facility] [address] [place] [address]- Care Team Providers Care Strip Cutter Name Role Phone Sina Gonzales DO Primary Care Physician Encounter 09/20/21 - 09/27/21 [facility] [address], [facility] [address] [place] [address]- Attending Physician: Cassy Calzada Admitting Physician: Cassy Calzada Referring Physician: Cassy Calzada Allergies, Adverse Reactions, Alerts Substance Reaction Severity [...]
--- OUTSIDE RECORDS SUMMARY | 2022-11-26 12:34 | XMS_ITS | Continuity of Care Document ---
Author Name Unknown Organization [facility] Medicine Address [address] [place] [address]- Care Team Providers Care Telecommunications Cable Jointer Name Role Phone Sina Gonzales DO Primary Care Physician En[place] [facility] [place] Date(s): 03/03/21 - 04/02/21 [facility] Medicine [address] [place] [id number] Allergies, Adverse Reactions, Alerts Substance Reaction [...]
--- OUTSIDE RECORDS SUMMARY | 2022-11-26 12:34 | XMS_ITS | Continuity of Care Document ---
Author Name Unknown Organization [facility] Address [address] [facility] [place] [address]- Care Team Providers Care Visualizer Name Role Phone Sina Gonzales DO A Primary Care Physician [phone] En[place] [facility] [place] Date(s): 02/04/21 - 03/06/21 [facility] [address] [place] [address]- Attending Physician: Jessica Dewitt Admitting Physician: Jessica Dewitt Referring Physician: AdmtrJessica Allergies, Adverse Reactions, Alerts Substance Reaction Severity Status HYDROcodone Active Medications betamethasone topical dipropionate 0.05% cream 1 application, Topically, Daily, for 14 days, # 15 Gm, 0 Refills, Acute 03/17/21 16:55:00 EST, 03/03/21 16:55:00 EST, Cream, [facility], Partial fill upon patient request if the prescription is for a schedule II opioid drug., 1 applicati... Start Date: 03/03/21 Stop Date: 03/17/21 Status: Ordered cyclobenzaprine 5 mg oral tablet [...]
--- OUTSIDE RECORDS SUMMARY | 2022-11-26 12:34 | XMS_ITS | Continuity of Care Document ---
Author Name Unknown Organization [facility] Address [address] [facility] [place] [address]- Care Team Providers Care Printer Machine Name Role Phone Sina Gonzales DO Errol Primary Care Physician En[place] [facility] [place] Date(s): 09/08/21 - 10/08/21 [facility] [address] [place], [place] [address] Allergies, Adverse Reactions, Alerts Substance Reaction Severity [...]
--- OUTSIDE RECORDS SUMMARY | 2022-11-26 12:34 | XMS_ITS | Continuity of Care Document ---
Author Name Unknown Organization [facility] Medicine Address [address] [place] [address]- Care Team Providers Care Nurse Name Role Phone Sina Gonzales DO Primary Care Physician [phone] En[place] [facility] [place] Date(s): 02/08/21 - 03/10/21 [facility] Medicine [address] [place] [id number] Allergies, Adverse Reactions, Alerts Substance Reaction [...]
--- OUTSIDE RECORDS SUMMARY | 2022-11-26 12:34 | XMS_ITS | Continuity of Care Document ---
Author Name Unknown Organization [facility] [place] Address [address] [facility] [address] [place] [address]- Care Team Providers Care Dispersion Mixer Name Role Phone Sina Gonzales DO Primary Care Physician Encounter 11/17/20 - 11/24/20 [facility] [address], [address] [place], [place] [id number]- us Attending Physician: Cassy Calzada Admitting Physician: Cassy [...]
--- OUTSIDE RECORDS SUMMARY | 2022-11-26 12:34 | XMS_ITS | Continuity of Care Document ---
Author Name Unknown Organization [facility] Address [address] [facility] [place] [address]- Care Team Providers Care Custodian Blood Bank Name Role Phone Sina Gonzales DO Primary Care Physician [phone] [place] [facility] [place] 11/04/20 - 11/11/20 [facility] [address] [place] [address]- Attending Physician: Luís Shultz MD Admitting Physician: Luís Shultz MD Referring Physician: Tanna Cabrera Allergies, Adverse Reactions, Alerts Substance Reaction Severity [...] oldest [Reference Range]: 1 Height 170.1 cm (11/04/20 9:38 AM) Pulse Rate [55-90 bpm] 91 bpm *H* (11/04/20 9:38 AM) Blood Pressure [90-138/55-84 mm Hg] 128/ 83mm Hg (11/04/20 9:38 AM) Respiratory Rate [16-30 br/min] 16 br/mi n (11/04/20 9:38 AM) Blood pressure sites Arm, right (11/04/20 9:38 AM)
--- OUTSIDE RECORDS SUMMARY | 2022-11-26 12:35 | XMS_ITS | Continuity of Care Document ---
Author Name Unknown Organization [facility] Address [address] [facility] [place] [address]- Care Team Providers Care Nougat Cutter Machine Name Role Phone Sina Gonzales DO Errol Primary Care Physician [phone] [place] [facility] [place] Date(s): 09/08/21 - 10/08/21 [facility] [address] [place], [place] [address] Allergies, Adverse Reactions, Alerts Substance Reaction Severity [...]
[2022-11-26 12:55] VITALS: BP 127/83; PULSE 91; RESP 16; TEMP 37.6; O2SAT 98
--- NOTE | 2022-11-26 13:42 | PC.NURSE ---
pt a&ox3. respirations even and unlabored. 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 pt thinks he may have pulled a muscle. he states he has been having nausea and diarrhea since this has happened. pt denies chest pain at this time.
[2022-11-26 14:14] VITALS: BP 117/78; PULSE 85; RESP 18; O2SAT 98
== END 2022-11-26 15:39 | disposition home or self-care (01) ==
PROVIDERS: Nurse Practitioner Family; Emergency Provider Student in an Organized Health Care Education/Training Program; PCP Internal Medicine
DX: K29.70 Gastritis, unspecified, without bleeding (principal); R10.9 Unspecified abdominal pain
CPT/HCPCS: 36415; 74176; 80053; 81003; 83605; 83690; 85025; 99284

== ENCOUNTER 2022-12-19 14:51 | Outpatient (REF) | payer MEDICAID, SELFPAY ==
[2022-12-19 17:36] LABS: MANUAL DIFF FLAG NO
[2022-12-19 17:45] LABS: Basophils Percent Auto 0.5 % (0-2); Eosinophils Absolute Auto 0.2 X10*3/uL (0.0-0.4); Eosinophils Percent Auto 1.8 % (0-4); Hematocrit 53.7 % (42.0-52.0); Hemoglobin 18.3 g/dl (14.0-18.0); Imm Gran Abs Auto 0.04 X10*3/uL (0.00-0.03); Imm Gran Pct Auto 0.5 % (0.0-0.4); Lymphocytes Absolute Auto 2.1 X10*3/uL (1.2-4.9); Lymphocytes Percent Auto 24.1 % (20-40); Mean Corpuscular HGB Conc 34.1 g/dl (31.0-36.0); Mean Corpuscular Hemoglobin 30.5 pg (27.0-33.0); Mean Corpuscular Volume 89.5 fL (80.0-98.0); Mean Platelet Volume 10.3 fL (9.4-12.4); Monocytes Absolute Auto 0.6 X10*3/uL (0.1-1.2); Monocytes Percent Auto 6.3 % (2-11); Neutrophils Absolute Auto 5.9 x10*3/uL (2.0-8.3); Neutrophils Percent Auto 66.8 % (45-73); Platelet Count 292 X10*3/uL (160-400); Red Cell Distribution Width 11.7 % (11.0-16.0); White Blood Count 8.8 X10*3/uL (4.8-10.8)
[2022-12-19 17:53] LABS: Alanine Aminotransferase 28 U/L (0-40); Albumin Level 4.8 g/dL (3.5-5.0); Alkaline Phosphatase 45 U/L (39-117); Amylase 48 U/L (28-100); Anion Gap 12 (12-20); Aspartate Amino Transferase 21 U/L (5-37); Bilirubin Total 0.4 mg/dL (0.0-1.0); Blood Urea Nitrogen 13 mg/dL (9-16); Calcium 10.2 mg/dL (8.4-10.2); Carbon Dioxide 29 mmol/L (22-29); Chloride 101 mmol/L (96-108); Estimated Glomerular Filt Rate > 60; Glucose Random 88 mg/dL (60-115); Iron 106 mcg/dL (45-160); Lipase 35 U/L (8-78); Percent Iron Saturation 32 % (15-50); Potassium 4.3 mmol/L (3.3-5.1); Sodium 138 mmol/L (135-145); Total Iron Binding Capacity 334 mcg/dL (228-428); Total Protein 7.7 g/dL (6.5-8.0); Unsaturated Iron Binding 228 ug/dL
[2022-12-19 18:12] LABS: Gamma Glutamyl Transpeptidase 36 U/L (11-51)
[2022-12-19 18:19] LABS: Ferritin 113 ng/mL (20-250)
[2022-12-19 19:12] LABS: Erythrocyte Sedimentation Rate 1 MM/HR (0-15)
== END 2022-12-19 14:52 | disposition home or self-care (01) ==
LOC: HO.MANLDS 14:51
PROVIDERS: Visit Provider Physician Assistant
DX: R10.0 Acute abdomen (principal)
CPT/HCPCS: 36415; 80053; 82150; 82728; 82977; 83540; 83690; 85025; 85652

== ENCOUNTER 2023-12-19 07:27 | Outpatient (REF) | payer MEDICAID, SELFPAY ==
[2023-12-19 07:39] LABS: MANUAL DIFF FLAG NO
[2023-12-19 07:43] LABS: Basophils Percent Auto 0.4 % (0-2); Eosinophils Absolute Auto 0.2 X10*3/uL (0.0-0.4); Hemoglobin 17.8 g/dl (14.0-18.0); Imm Gran Abs Auto 0.03 X10*3/uL (0.00-0.03); Imm Gran Pct Auto 0.4 % (0.0-0.4); Lymphocytes Absolute Auto 2.6 X10*3/uL (1.2-4.9); Lymphocytes Percent Auto 36.6 % (20-40); Mean Corpuscular HGB Conc 34.2 g/dl (31.0-36.0); Mean Corpuscular Hemoglobin 30.1 pg (27.0-33.0); Mean Corpuscular Volume 87.8 fL (80.0-98.0); Mean Platelet Volume 9.6 fL (9.4-12.4); Monocytes Absolute Auto 0.5 X10*3/uL (0.1-1.2); Monocytes Percent Auto 7.5 % (2-11); Neutrophils Absolute Auto 3.7 x10*3/uL (2.0-8.3); Neutrophils Percent Auto 52.1 % (45-73); Platelet Count 236 X10*3/uL (160-400); Red Blood Count 5.92 X10*6/uL (4.60-5.80); Red Cell Distribution Width 11.5 % (11.0-16.0); White Blood Count 7.1 X10*3/uL (4.8-10.8)
[2023-12-19 07:52] LABS: Estimated Average Glucose 108 mg/dL; Hemoglobin A1c % 5.4 % (<6.0)
[2023-12-19 08:14] LABS: Alanine Aminotransferase 28 U/L (0-40); Albumin Level 4.7 g/dL (3.5-5.0); Alkaline Phosphatase 46 U/L (39-117); Anion Gap 13 (12-20); Aspartate Amino Transferase 21 U/L (5-37); Bilirubin Total 0.7 mg/dL (0.0-1.0); Blood Urea Nitrogen 15 mg/dL (9-16); Calcium 9.8 mg/dL (8.4-10.2); Carbon Dioxide 28 mmol/L (22-29); Chloride 105 mmol/L (96-108); Cholesterol 235 mg/dL (<200); Estimated Glomerular Filt Rate > 60; Glucose Random 105 mg/dL (60-115); HDL Cholesterol 46 mg/dL (>40); LDL Cholesterol Calculated 162 mg/dL (<100); Potassium 4.7 mmol/L (3.3-5.1); Sodium 141 mmol/L (135-145); Total Protein 7.3 g/dL (6.5-8.0); Triglycerides 136 mg/dL (<150)
[2023-12-19 08:30] LABS: TSH reflex Free T4 1.18 uIU/mL (0.32-4.0); Vitamin D 25-OH Total 51.2 ng/mL (>30)
[2023-12-19 08:38] LABS: Folate 16.2 ng/mL (> or = 4.0); Prostate Specific Antigen 4.43 ng/mL (<0.05-4.0); Vitamin B12 1088 pg/mL (200-900)
== END 2023-12-19 07:28 | disposition home or self-care (01) ==
LOC: HO.LAB 07:27
PROVIDERS: PCP Internal Medicine; Visit Provider Physician Assistant
DX: R53.83 Other fatigue (principal); Z82.49 Family history of ischemic heart disease and other diseases of the circulatory system; Z12.5 Encounter for screening for malignant neoplasm of prostate
CPT/HCPCS: 36415; 80053; 80061; 82306; 82607; 82746; 83036; 84153; 84443; 85025

== ENCOUNTER 2024-05-25 10:58 | Outpatient (REF) | payer MEDICAID, SELFPAY ==
--- NOTE | ~2024-05-25 | XR_ITS ---
EXAMINATION: XR TIBIA AND FIBULA, RIGHT CLINICAL INFORMATION: Right lower leg pain COMPARISON: None available. TECHNIQUE: AP and lateral views of the right tibia and fibula were obtained. FINDINGS: The bones and soft tissues are normal. No fracture. No osseous lesions. XR/XR tibia fibula RT 2V IMPRESSION: Normal right tibia and fibula. Electronically signed by: Nacho Gross MD 05/28/2024 10:23 AM STORMY
--- NOTE | ~2024-05-25 | XR_ITS ---
EXAMINATION: XR KNEE, LEFT CLINICAL INFORMATION: Left knee pain. COMPARISON: None available. TECHNIQUE: Two views of the left knee. FINDINGS: No acute cortical disruption or malalignment. No suprapatellar bursa joint effusion. No lytic or blastic lesions. There is preservation of the joint spaces. XR/XR knee LT 2V IMPRESSION: Normal x-ray, left knee. Electronically signed by: William Faustin MD 05/28/2024 10:09 AM STORMY FERNANDEZ
--- NOTE | ~2024-05-25 | XR_ITS ---
EXAMINATION: XR TIBIA AND FIBULA, LEFT CLINICAL INFORMATION: Left lower leg pain. COMPARISON: None available. TECHNIQUE: AP and lateral views of the left tibia and fibula were obtained. FINDINGS: The bones and soft tissues are normal. No fracture. No osseous lesions. XR/XR tibia fibula LT 2V IMPRESSION: Normal left tibia and fibula. Electronically signed by: Nacho Gross MD 05/28/2024 10:22 AM STORMY
--- NOTE | ~2024-05-25 | XR_ITS ---
EXAMINATION: XR KNEE, RIGHT CLINICAL INFORMATION: Right knee pain COMPARISON: None available. TECHNIQUE: Two views of the right knee. FINDINGS: No acute cortical disruption or malalignment. No lytic or blastic lesions. No suprapatellar bursa joint effusion. There is preservation of the joint spaces. XR/XR knee RT 2V IMPRESSION: Normal x-ray, right knee. Electronically signed by: William Faustin MD 05/28/2024 10:13 AM STORMY
== END 2024-05-25 10:59 | disposition home or self-care (01) ==
LOC: HO.HMGCX 10:58
PROVIDERS: PCP Internal Medicine; Visit Provider Physician Assistant
DX: M25.562 Pain in left knee (principal); M25.561 Pain in right knee; W19.XXXD Unspecified fall, subsequent encounter; M79.604 Pain in right leg; M79.605 Pain in left leg
CPT/HCPCS: 73560; 73590

== ENCOUNTER → 2024-05-25 11:10 | Outpatient (BNV) | payer MEDICAID, SELFPAY | PROVIDERS: PCP Internal Medicine; Visit Provider Radiology Diagnostic Radiology | DX: M25.562 Pain in left knee (principal); M25.561 Pain in right knee; M79.662 Pain in left lower leg; M79.661 Pain in right lower leg | CPT/HCPCS: 73560; 73590 ==

== ENCOUNTER 2024-07-01 12:59 | Outpatient (REF) | payer MEDICAID, SELFPAY ==
--- NOTE | ~2024-07-01 | MR_ITS ---
EXAMINATION: MR BRAIN WITHOUT AND WITH CONTRAST CLINICAL INFORMATION: Intermittent weakness. Family history of multiple sclerosis. History of cavernous hemangioma. COMPARISON: July 29, 2019. TECHNIQUE: Multiplanar, multisequence MRI of the brain was obtained before and after the intravenous administration of 10 mL Gadavist without reported immediate complications. FINDINGS: There is a focal round susceptibility in the subcortical deep white matter right frontal lobe. There is an associated vascular morphology pattern susceptibility associated medusa morphology pattern enhancing structure extending from the subependymal right frontal horn lateral ventricle into the extra-axial right frontal convexity. No mass effect. No restricted diffusion. No acute intracranial hemorrhage, mass effect, midline shift, hydrocephalus or herniation. Rodriguez-white matter differentiation is normal. Posterior cranial fossa contents demonstrated no gross signal abnormality or masses. Sellar/suprasellar region demonstrated no signal abnormality or masses. Craniocervical junction is intact and normal. Midline structures are intact and normal. The flow-void signal within the main vessels is normal. No enhancing mass, intra-axial or extra-axial compartment of the cranium. MR/MR head/brain wo/w con IMPRESSION: Cavernoma, right frontal lobe. Associated developmental venous anomaly, right frontal lobe. No acute brain abnormality. Electronically signed by: William Faustin MD 07/02/2024 09:32 AM EDT
[2024-07-01] MEDS: gadobutroL 10 ML VIAL IVPUSH (13:47)
--- OUTSIDE RECORDS SUMMARY | 2024-07-01 14:38 | XMS_ITS | Clinical Summary ---
Author Organization [facility], Address [address] [place] [address] Phone Care Team Providers Care Foreign Policy Officer Name Role Phone Sina Gonzales DO Primary Care Provider [phone] Allergies Active Allergy Reactions Criticality Noted Date Comments Egg White (Egg Protein) Diarrhea 11/20/2019 Lactose 05/31/2019 Tramadol Other (see comments) 11/20/2019 Mood swings Medications LORazepam (ATIVAN) 0.5 MG tablet Take 1 tablet by mouth 3 (three) times a day if needed 08/19/19 20 Active tamsulosin (FLOMAX) 0.4 MG 24 hr capsule Take 0.4 mg by mouth 1 (one) time each day 10/10/19 20 Active hydroCHLOROthi azide 12.5 MG tablet Please cut pills to a quarter for a total dose of 3.125 mg daily. 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 Urolithiasis 05/10/2019 Immunizations Name Administration Dates Next Due Influenza, Quadrivalent, Pre servative Free 02/20/2020 Influenza, Quadrivalent, Wit h Preservative 02/20/2020 Pfizer SARS-COV-2 07/25/2020, 1,07/04/2020,2020 Tdap 09/03/2020 Social History Tobacco Use Types Packs/Day Years Used Date Smoking Tobacco: Former Sex and Gender Information Value Date Recorded Sex Assigned at Not on file Legal Sex Male 2:08 PM EDT Gender Identity Not on file Sexual Orientation Not on file Plan of Treatment Health Maintenance Due Date Last Done Comments Hepatitis B Vaccine (1 of 3 - 19+ 3-dose series) 1996 Influenza Vaccine (#1) 2023 0, 02/20/2020 Pneumococcal Vaccine: Pediatrics (0 to 5 Years) and At-Risk Patients (6 to 64 Years) Aged Out No longer eligible b ased on patient's age to complete this topic Insurance MEDICAID [place] Care Teams Foreign Policy Officer Relationship Specialty Start Date End Date Sina Gonzales DO [address] [facility] [place] [address] PCP - General Internal Medicine 11/14/19
--- OUTSIDE RECORDS SUMMARY | 2024-07-01 14:38 | XMS_ITS | Data Portability ---
Author Organization [facility] Home Service Address [address] [place] [address] Assessment Encounter Date Assessment Date Assessment LastModified by Organization Details LastModified Time 03/04/2024 03/04/2024 Patient agreed and verbally consents to this audio and video Telehealth appt via a secure platform [email or web address] Not available 03/04/2024 14:06:29 Plan of Treatment Reminders Order Date Submit Date Provider Last Modified By Organization Details Last Modified Time Details Appointments None recorded. Lab None recorded. Referral None recorded. Procedures None recorded. Surgeries None recorded. Imaging MRI, brain, w/wo contrast 2024 025 [facility], [address] [place], [address], 5 11:25:55 US, echocardiog [email or web address] [address] Central Scheduling, [address] [place], [address], 5 15:02:39 exercise stress test [address] (Imaging), [address] [place], [address], 5 15:02:39 XR, tibia + fibula, 2 view 2024 025 [facility] (Imaging), [address] [place], [address], 5 08:03:31 XR, tibia + fibula, 2 view 2024 025 [facility] (Imaging), [address] [place] [address], [address], 5 08:03:31 XR, knee, 3 view 2024 025 [facility] (Imaging), [address] [place] [address], [address], 5 08:03:31 XR, knee, 3 view 2024 025 [facility] (Imaging), [address] [place] [address], [address], 5 08:03:31 Medication Orders lisinopril 20 mg tablet 2024 025 [facility], [address] [place], [address], 5 10:44:10 lisinopril 5 mg tablet 2024 025 [facility], [address] [place], [address], 5 10:44:11 meloxicam 15 mg tablet 2024 025 [facility], [address] [place], [address], 5 11:00:24 lisinopril 10 mg tablet 2024 025 [facility], [address] [place], [address], 5 10:53:53 lorazepam 0.5 mg tablet 2024 025 [facility], [address] [place], [address], 5 11:29:28 amoxicillin 875 mg-deena m clavulanate 125 mg tablet 2023 025 [facility] [address] [place], [address], 5 11:26:05 prednisone 10 mg tablet [address]23 [address] [place], [address], 5 10:18:43 betamethaso ne dipropionat e 0.05 % topical cream 2023 024 [facility] [address] [place], [address], 4 11:04:07 famotidine 20 mg tablet 2023 024 [facility] [address] [place], [address], 4 11:04:52 lisinopril 5 mg tablet 2023 024 [facility] [address] [place], [address], 4 14:46:15 lorazepam 0.5 mg tablet 2023 024 [facility] [address] [place], [address], 4 11:01:16 Patient TargetsNo targets recorded. Patient InstructionsNo instructions recorded. Reason for Referral None Reported. Results Created Date Observation Date Name Description Value Unit Range Abnormal Flag Note LastModifiedBy Organization Detail LastModifiedTime 05/28/19 25 05/25/2024 XR, knee, 3 view No observ ation record ed. [email or web address] [facility] ([facility] [address] [place], [address], 05/28/2024 10:35:14 05/28/19 25 05/25/2024 XR, knee, 3 view No observ ation record ed. [email or web address] [address] [place], [address], 05/28/2024 10:35:28 Result Notes None recorded. Problems Name Problem SNOMED Code Status Onset Date Resolution Date Notes Provider Name and Address Organization Details Recorded Time Diaz' s esophagu s 376242455 Active 2019 the patient is doing well since surgery, GERD, hernia, all resolved since surgery JESSICA NAVA [address] [place], [address], [facility] 1 21:14:11 Hiatal hernia 49367551 Completed 201905/29/2020 JESSICA NAVA [address] [place], [address], [facility] 1 21:13:42 Urolithi asis 56073707 Active 2019 ongoing, fu with [facility] JESSICA NAVA [address] [place], [address], [facility] 1 21:15:25 Divertic ulosis of colon without divertic ulitis 274254367 Active 2019 IRVING Garcia [address] [place], [address], [facility] 0 10:40:30 Atypical chest pain 471969831 Completed 201905/29/2020 JESSICA NAVA [address] [place], [address], [facility] 5 10:48:15 Migraine with aura 6561791 Active 2019 IRVING Garcia [address] [place], [address], [facility] 0 11:06:47 Gastroes ophageal reflux disease 866462667 Completed 201905/29/2020 JESSICA NAVA [address] [place], [address], [facility] 3 14:40:17 Cavernou s hemangio ma of brain 636772143 Active 2019 stable, followin g with neuro, need to monitor BP JESSICA NAVA [address] [place], [address], [facility] 1 21:14:39 Essentia l hyperten scot 11478769 Active 2020 JESSICA NAVA [address] [place], [address], [facility] 1 21:15:00 History of calculus of kidney 887410055 Active 2020 JESSICA NAVA [address] [place], [address], [facility] 1 21:15:09 Anxiety 39469676 Active 2020 JESSICA NAVA [address] [place], [address], [facility] 1 21:17:59 Localize d swelling of left lower leg 0233021392 3425086 Active 2021 JESSICA NAVA [address] [place], [address], [facility] 2 11:59:59 Asthma 403857998 Active 2021 JESSICA NAVA [address] [place], [address], [facility] 2 12:02:00 Tinea pedis 3278122 Active 2021 JESSICA NAVA [address] [place], [address], [facility] 2 12:06:54 Candidal intertri go 401591474 Active 2022 JESSICA NAVA [address] [place], [address], [facility] 3 14:36:22 Rib pain 111796538 Active 2022 JESSICA NAVA [address] [place], [address], [facility] 3 14:36:37 Injury of face 329498569 Active 2022 JESSICA NAVA [address] [place], [address], [facility] 3 14:37:12 Candidia sis of skin 76788159 Active 2022 JESSICA NAVA [address] [place] [address], [address], [facility] 3 14:39:02 Nausea and vomiting 59691013 Active 2022 JESSICA NAVA [address] [place] [address], [address], [facility] 3 14:42:40 Concussi on injury of brain 261320458 Active 2022 JESSICA NAVA [address] [place] [address], [address], [facility] 3 14:45:01 Hyperpar athyroid ism 80269561 Active 2022 JESSICA NAVA [address] [place] [address], [address], [facility] 3 11:27:45 Kidney stone 07946876 Active 2022 JESSICA NAVA [address] [place] [address], [address], [facility] 3 09:59:23 Gastroes ophageal reflux disease 345631705 Active 2022 JESSICA NAVA [address] [place] [address], [address], [facility] 3 14:40:17 Abdomina l pain 73244415 Active 2022 JESSICA NAVA [address] [place], [address], [facility] 3 14:40:25 Pain of left knee joint 7793398225 75036 Active 2023 JESSICA NAVA [address] [place], [address], [facility] 4 10:10:33 Fatigue 20166989 Active 2023 JESSICA NAVA [address] [place] [address], [address], [facility] 4 10:20:44 Prostate specific antigen above referenc e range 884688610 Active 2023 Sina Gonzales DO [address] [place] [address], [address], [facility] 4 22:06:35 Hyperlip idemia 31722623 Active 2023 Sina Gonzales DO [address] [place] [address], [address], [facility] 4 16:20:33 COVID-19 284488117 Active 2023 JESSICA NAVA [address] [place] [address], , [facility] 4 15:48:07 Candidia sis of mouth 27078535 Active 2023 JESSICA NAVA [address] [place] [address], [address], [facility] 4 09:23:33 Post-acu te COVID-19 3296679465 Active 2023 JESSICA NAVA [address] [place] [address], [address], [facility] 4 11:02:44 Acute tonsilli tis 47736176 Active 2023 JESSICA NAVA [address] [place], [address], [facility] 4 15:39:34 Pain of right knee joint 3024247932 26314 Active 2024 JESSICA NAVA [address] [place], [address], [facility] 5 10:52:38 Lacerati on of lower leg 027768301 Active 2024 JESSICA NAVA [address] [place], [address], [facility] 5 10:53:12 Lacerati on of lower leg 832828684 Active 2024 JESSICA NAVA [address] [place], [address], [facility] 5 10:53:30 Atypical chest pain 300696204 Active 2024 JESSICA NAVA [address] [place], [address], [facility] 5 10:48:15 Problem Notes None recorded. Procedures Surgical History Date Name Laterality Status Provider Name and Address Organization Details Recorded Time 0 Colonoscopy completed Amy Fiore [facility] 05/08/2019 13:46:41 Imaging Results Imaging Date Name Status LastModified by Organiz ation Details LastModified Time 05/25/2024 XR, knee, 3 view completed [email or web address] [facility] (Imaging) [address] [place], [address], 05/28/2024 10:35:14 05/25/2024 XR, knee, 3 view completed [email or web address] [facility] [address] [place] [address] [place], [address], 05/28/2024 10:35:28 Procedure Notes None recorded. Medical Equipment None Reported. Allergies Allergen ID Allergen Name Allergen Category Reaction Reaction Severity Criticality Documentation Date Start Date Code Code System Note Provider Name and Address Organization Details Recorded Time 3662 egg extract food,medi cation diarrhea Not available Not available 04/08/2019 50330 15 RxNorm Amy cadet [facility] 0 14:07:10 3833 tramadol medicatio n Not available Not available Not available 08/12/2019 53878 RxNorm mood swing [facility] 10:44[facility]00 8510 Paxlovid medicatio n fever moderate Not available 02/13/2024 91700 5 UNK JESSICA NAVA [address] [place], [address], [facility] 4 11:03:43 8572 Product containin g penicilli n (product) medicatio n nausea moderate low 03/06/20242023 44382 8001 SNOMED [facility] 4 10:47:54 8573 prednison e medicatio n bradycard ia moderate low 03/06/20242023 8640 RxNoJESSICA Sun [address] [place], [address], [facility] 5 11:36:16 Medications Name Sig Start Date Stop Date Status Note LastModified by Organization Details LastModified Time cyclobenza jadiel 10 mg tablet TAKE ONE TABLET BY MOUTH THREE TIMES A DAY NEEDED active Not Available Not Available No t Available fluconazol e 100 mg tablet Take 1 tablet every day by oral route for 7 days. 05/01 completed Not Available Not Available Not Available nystatin 100,000 unit/mL oral suspension Take 5 mL 4 times a day by oral route for 7 days. 2023 active Not Available Not Available Not Avai lable clonidine HCl 0.1 mg tablet TAKE 1 TABLET BY MOUTH TWICE A DAY active Not Available Not Available No t Available prednisone 10 mg tablet TAKE 4 TABS BY MOUTH X 2 DAYS, 3 TABS X 2 DAYS, 2 TAB X 2DAYS, THEN 1 TAB X 2 DAYS 06/21 completed Not Available Not Available Not Available rabeprazol e 20 mg tablet,del ayed release 12/16 completed Not Available Not Available Not Available triamcinol one acetonide 0.5 % topical cream APPLY A THIN LAYER TO THE AFFECTED AREAS TWO TIMES A DAY 02/17 completed Not Available Not Available Not Available L-Lysine 500 mg tablet Take 1 tablet by oral route. 02/17 completed Not Available Not Available Not Available azithromyc in 250 mg tablet TAKE 2 TABLETS BY MOUTH TODAY, THEN TAKE 1 TABLET DAILY FOR 4 DAYS DIRECTED 06/21 completed Not Available Not Available Not Available ibuprofen 800 mg tablet TAKE ONE TABLET BY MOUTH EVERY 8 HOURS NEEDED FOR PAIN 08/24 completed Not Available Not Available Not Available fluconazol e 150 mg tablet TAKE ONE TABLET BY MOUTH EVERY DAY active Not Available Not Available No t Available valacyclov ir 1 gram tablet Take 1 tablet every 12 hours by oral route. 08/17 completed Not Available Not Available Not Available meloxicam 15 mg tablet TAKE 1 TABLET BY MOUTH EVERY DAY NEEDED FOR 14 DAYS active Not Available Not Available No t Available lisinopril 20 mg tablet TAKE 1 TABLET BY MOUTH EVERY DAY active Not Available Not Available No t Available meclizine 12.5 mg tablet Take 1 tablet 3 times a day by oral route for 30 days. 02/16 completed Not Available Not Available Not Available ciprofloxa gretel 500 mg tablet Take 1 tablet every 12 hours by oral route for 10 days. 02/17 completed Not Available Not Available Not Available tramadol 50 mg tablet 08/11 completed Not Available Not Available Not Available ondansetro n 8 mg disintegra ting tablet TAKE 1 TABLET TWICE A DAY BY TRANSLING UAL ROUTE NEEDED FOR 30 DAYS. 05/01 completed Not Available Not Available Not Available pantoprazo le 20 mg tablet,del ayed release Take 1 tablet every day by oral route for 30 days. 07/30 completed Not Available Not Available Not Available Calcium-Vi tamin D 1500 mg tablet Take 1 tablet by oral route for 30 days. 02/17 completed Not Available Not Available Not Available oxycodone- acetaminop hen 5 mg-325 mg tablet TAKE ONE TABLET BY MOUTH EVERY 6 HOURS NEEDED FOR PAIN 02/16 completed Not Available Not Available Not Available famotidine 20 mg tablet TAKE 1 TABLET BY MOUTH TWICE A DAY active Not Available Not Available No t Available lorazepam 0.5 mg tablet TAKE 1 TABLET BY MOUTH THREE TIMES A DAY NEEDED active Not Available Not Available No t Available tamsulosin 0.4 mg capsule TAKE 1 CAPSULE BY MOUTH EVERY DAY active Not Available Not Available No t Available meclizine 25 mg tablet 10/10 completed Not Available Not Available Not Available baclofen 10 mg tablet 09/26 completed mood/ anger Not Available Not Available Not Available econazole nitrate 1 % topical cream APPLY TO AFFECTED AREA(S) TWO TIMES A DAY FOR 14 DAYS 02/07 completed Not Available Not Available Not Available esomeprazo le magnesium 40 mg capsule,de layed release 09/02 completed Not Available Not Available Not Available ranitidine 150 mg tablet Take 1 tablet twice a day by oral route as needed for 90 days. 07/30 completed Not Available Not Available Not Available lisinopril 10 mg tablet TAKE ONE TABLET BY MOUTH EVERY DAY 03/18 completed Not Available Not Available Not Available losartan 25 mg tablet TAKE ONE TABLET BY MOUTH EVERY DAY 12/19 completed Not Available Not Available Not Available nystatin-t riamcinolo ne 100,000 unit/g-0.1 % topical cream 08/17 completed Not Available Not Available Not Available betamethas one dipropiona te 0.05 % topical cream APPLY SPARINGLY TO AFFECTED AREA ONCE A DAY active Not Available Not Available No t Available sertraline 25 mg tablet Take 1 tablet every day by oral route for 30 days. 08/17 completed Not Available Not Available Not Available omeprazole 20 mg capsule,de layed release Take 1 capsule every day by oral route for 30 days. 05/10 completed Not Available Not Available Not Available bisacodyl 5 mg tablet,del ayed release 06/20 completed Not Available Not Available Not Available lisinopril 5 mg tablet TAKE 1 TABLET BY MOUTH EVERY DAY DIRECTED active Not Available Not Available No t Available hydrochlor othiazide 25 mg tablet TAKE 1/2 TABLET BY MOUTH EVERY OTHER DAY 10/19 completed Not Available Not Available Not Available metoprolol succinate ER 25 mg tablet,ext ended release 24 hr TAKE ONE TABLET BY MOUTH EVERY DAY 08/17 completed Not Available Not Available Not Available lorazepam 1 mg tablet 08/11 completed Not Available Not Available Not Available ibuprofen 600 mg tablet 12/16 completed Not Available Not Available Not Available albuterol sulfate HFA 90 mcg/actuat ion aerosol inhaler active Not Available Not Available Not Available ketoconazo le 2 % topical cream APPLY TO AFFECTED AREA S) ONCE DAILY active Not Available Not Available No t Available ondansetro n 4 mg disintegra ting tablet 08/17 completed Not Available Not Available Not Available lisinopril 2.5 mg tablet Take 1 tablet every day by oral route for 90 days. 11/28 completed Not Available Not Available Not Available amoxicilli n 875 mg-potassi um clavulanat e 125 mg tablet TAKE 1 TABLET BY MOUTH EVERY 12 HOURS FOR 7 DAYS active Not Available Not Available No t Available esomeprazo le magnesium 20 mg capsule,de layed release Take 1 capsule every day by oral route for 30 days. 09/02 completed Not Available Not Available Not Available oxycodone 5 mg tablet 02/17 completed Not Available Not Available Not Available Ciprodex 0.3 %-0.1 % ear drops,susp ension 09/16 completed Not Available Not Available Not Available rosuvastat in 10 mg tablet TAKE 1 TABLET BY MOUTH EVERY DAY FOR 30 DAYS active Not Available Not Available No t Available tadalafil 5 mg tablet TAKE 1 TABLET BY MOUTH EVERY DAY active Not Available Not Available No t Available fluocinolo ne 0.01 % scalp oil and shower cap APPLY A THIN LAYER TO ENTIRE SCALP AT BEDTIME NEEDED FOR ITCH OR FLAKING active Not Available Not Available No t Available Vitamin D active Not Available Not Betty ilable Not Available lisinopril 08/22 completed Not Available Not Available Not Available naltrexone 3mg once a day 02/17 completed Not Available Not Available Not Available mometasone 0.1 % topical solution APPLY TO AFFECTED AREAS OF SCALP ONCE OR TWICE DAILY FOR UP TO 2 WEEKS AT AT TIME. active Not Available Not Available No t Available ProAir HFA 2 puffs prn 09/02 completed Not Available Not Available Not Available hydrochlor othiazide 12.5 mg tablet TAKE 1/4 TABLET (3.125MG) BY MOUTH DAILY 11/01 completed Not Available Not Available Not Available peg 3350-elect rolytes 236 gram-22.74 gram-6.74 gram-5.86 gram solution 06/20 completed Not Available Not Available Not Available B-12 Compliance 1,000 mcg/mL injection kit Inject 1 mL every month by subcutane ous route. active Not Available Not Available No t Available Fluzone Quad (PF) 60 mcg (15 mcg x 4)/0.5 mL IM syringe VACCINATI ON ADMINISTE RED BY PHARMACIS T 08/17 completed Not Available Not Available Not Available Paxlovid 300 mg (150 mg x 2)-100 mg tablets in a dose pack TAKE 3 TABLETS BY MOUTH TWICE A DAY FOR 5 DAYS 02/12 completed Not Available Not Available Not Available Vitals Date Recorded Body height Body mass index (BMI) Body weight Heart rate Oxygen saturation Oxygen saturation in Arterial blood by Pulse oximetry Systolic blood pressure Diastolic blood pressure Provider Name and Address Organization Details Last Updated DateTime 4 172.72 cm 31.7 kg/m2 53082.3 7 g 110 /min 98 % 98 % 118 mm[Hg] 78 mm[Hg] Padimni [facility] 4 10:47:43 Date Recorded Body height Heart rate Oxygen saturation Oxygen saturation in Arterial blood by Pulse oximetry Systolic blood pressure Diastolic blood pressure Provider Name and Address Organization Details Last Updated DateTime 5 172.72 cm 91 /min 98 % 98 % 118 mm[Hg] 74 mm[Hg] Padminieric Jara [facility] 5 11:26:35 Date Recorded Body height Body mass index (BMI) Body weight Heart rate Oxygen saturation Oxygen saturation in Arterial blood by Pulse oximetry Systolic blood pressure Diastolic blood pressure Provider Name and Address Organization Details Last Updated DateTime 5 172.72 cm 32.8 kg/m2 88789.8 7 g 104 /min 96 % 96 % 112 mm[Hg] 74 mm[Hg] Padmini Jara [facility] 5 10:31:41 Date Recorded Body height Body mass index (BMI) Body weight Heart rate Oxygen saturation Oxygen saturation in Arterial blood by Pulse oximetry Systolic blood pressure Diastolic blood pressure Provider Name and Address Organization Details Last Updated DateTime 5 172.72 cm 33.3 kg/m2 28561.7 3 g 94 /min 99 % 99 % 132 mm[Hg] 82 mm[Hg] Catarino More [facility] 5 10:20:14 Social History Question Answer Notes LastModified by Organizat ion Details LastModified Time Tobacco Smoking Status Former Smoker Not Available [employer] 02/04/2020 03:36:24 What Was The Date Of Your Most Recent Tobacco Screening? 06/21/2024 [email or web address] Information not available 06/21/2024 Sex: Unknown Functional Status None recorded. Mental Status None recorded. Family History Nothing Reported. Medical History No medical history recorded. Immunizations Vaccine Type Date Status Note Provider Nam e and Address Organization Details Recorded Time COVID-19, mRNA, LNP-S, PF, 30 mcg/0.3 mL dose 2 completed Lily Gencarelle [facility] 12/19/2022 14:15:56 Influenza, split virus, quadrivalent, preservative 0 completed Lily Gencarelle [facility] 12/19/2022 14:15:55 COVID-19, mRNA, LNP-S, PF, 30 mcg/0.3 mL dose 1 completed Lily Gencarelle null, [facility] 12/19/2022 14:15:55 COVID-19, mRNA, LNP-S, PF, 30 mcg/0.3 mL dose 1 completed Lily Gencarelle [facility], [facility] 12/19/2022 14:15:56 Tdap 1 completed JESSICA NAVA [address] [place] [address], [address], [facility] 09/03/2020 12:08:49 Past Encounters Encounter ID Performer Location Encounter Start Date Encounter Closed Date Diagnosis/Indication Diagnosis SNOMED-CT Code Diagnosis ICD10 Code Diagnosis Note [id number] July IRVING Garcia [facility] [address] [facility],[place] [address] 04/08/2019 13:52:25 04/08/2019 15:00:03 Kidney stone 74080737 N20.0 Pain in testicle 7903738 9 N50.819 possible epididymit is Nausea 905315832 R11.0 Atypical chest pain 1025 85383 R07.89 [id number] [facility] [address] [facility], [place] [address] 04/23/2019 10:55:37 04/23/2019 12:29:15 Pain in testicle 50588389 N50.819 Nausea 771544081 R11.0 Anxiety 43767371 F41.9 Diarrhea 25902196 R19.7 Hydronephrosis 10753335 N13.30 Generalize d abdominal pain 931852198 R10.84 [id number] [facility] [address] [facility] [place] [address] 05/10/2019 09:54:12 05/10/2019 11:00:44 Diaz's esophagus 655325009 K22.70 Hiatal hernia 62629260 K 44.9 Urolithiasis 82641015 N2 0.9 Diverticul osis of colon without diverticulitis 663511344 K57.30 Atypical chest pain 1025 56937 R07.89 [id number] [facility] [address] [facility], [place] [address] 06/21/2019 11:05:32 06/21/2019 12:11:20 Gastroesophageal reflux disease 447071887 K21.9 Atypical chest pain 1025 71514 R07.89 likely gerd related Anxiety 43356002 F41.9 [id number] Kortney Almeida [facility] [address] [facility], ite Traci [facility] [place] [address] 07/31/2019 08:46:19 07/31/2019 10:54:40 Migraine with aura 6963638 G43.109 Gastroesop hageal reflux disease 704285572 K21.9 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 [id number] [facility] [address] [facility] [place] [address] 08/12/2019 10:34:36 08/12/2019 11:21:33 Migraine with aura 0336337 G43.109 Gastroesop hageal reflux disease 484416600 K21.9 Cavernous hemangioma of brain 868732226 D18.02 Posterior rhinorrhea 758 17117 R09.82 Asthma 451787071 J45.90 [id number] JESSICA NAVA [facility] [address] [place] [address] 7 08/23/2019 14:07:30 08/23/2019 14:43:59 Acute otitis media 5237512 H66.91 fluid and bulging TM in the right ear decreased hearing and pain ringing in the right ear Tinnitus 34041882 H93.11 will have him see ENT for possible eustachian tube dysfunctio n and chronic cryptic tonsilliti s [id number] JESSICA NAVA [facility] [address] [place] [address] 09/03/2019 10:50:45 09/03/2019 11:27:14 Essential hypertension 65025477 I10 will try starting patient on lisinopril will f/u in two weeks [id number] JESSICA NAVA [facility] [address] [place] [address] 09/17/2019 10:17:13 09/17/2019 11:16:34 Gastroesophageal reflux disease 379691281 K21.0 waiting on back ordered script using [employer] for the time being Dizziness 642147853 R42 is being seen by ENT > 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83 will have pt do these labs so he does not have to pay out of pocket for them discussed what labs he already has done Kidney stone 89284713 N2 0.0 take medication if start to develop symptoms of pyelonephr itis including increase in pain around kidneys, fever Gastroesop hageal reflux disease 731034990 K21.0 has appt with specialist [id number] JESSICA NAVA [facility] [address] [facility],[place] [address] 11/06/2019 10:11:55 11/06/2019 13:53:26 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 not antibodies , following with [facility] History of calculus of kidney 984294366 Z87.442 would like to be tested for PH-1 mutation > will evaluate kidneys Headache 87701089 R51 still have intermitte nt severe headaches but BP has been good > has fu with neuro Constipation 07414229 K5 9.00 related to use of oxycotin [id number] JESSICA NAVA [facility] [address] [facility],[place] [address] 12/17/2019 09:31:02 12/17/2019 09:57:15 Multiple benign melanocytic nevi 172677770 D22.9 would like referral for evalutatio n Food poisoning 85705567 A05.9 resolved Essential hypertension 80628334 I10 the patient BP is excellent today Butterfly rash 41329528 R21 will check a rheumatoid panel [id number] JESSICA NAVA [facility] [address] [place] [address] 01/07/2020 14:40:44 01/07/2020 15:31:58 Bite of spider 304580423 W57.XXXA the patient will keep wound clean with antibiotic soap will watch to make sure the patient doesn't have any worsening or spread Contact dermatitis 09605 004 L25.9 will treat with steriod cream to prevent spread [id number] [facility] [address] [facility],[place] [facility] [place] [address] 01/31/2020 10:52:24 01/31/2020 12:04:15 Essential hypertension 23502158 I10 the patient BP is elevating needs to start back on lisinopril at half a tab Anxiety 36679625 F41.9 stable History of calculus of kidney 051192831 Z87.442 will refer to [facility] per patient no one else here takes his insurance [id number] [facility] N[facility] [address] [facility],[place] [address] 02/18/2020 13:44:53 02/18/2020 14:44:54 Anxiety 11004078 F41.9 will start on sertraline Bite of spider 452860750 W57.XXXA the patient will keep wound clean with antibiotic soap will watch to make sure the patient doesn't have any worsening or spread Essential hypertension 55606932 I10 will increase to 15 mg and then 20 mg [id number] [facility] [address] [facility] [address] [address] 03/18/2020 08:17:34 03/18/2020 16:09:33 Essential hypertension 94300281 I10 needs to be cut back down to 5 mg and start a BB Palpitations 40255864 R0 0.2 will fu after start of medication s and see if improvemen t Orthostati c hypotension 21304005 I95.1 will see if med adjustment helps with this Anxiety 26036928 F41.9 will call when he wants to start on wellbutrin [id number] [facility] [address] [facility] [address] [facility],[place] [address] 05/29/2020 08:25:46 05/29/2020 16:36:44 Low back pain 134857901 M54.5 sprain/MSK injury from impact trauma will fu as needed Kidney stone 15888610 N2 0.0 will send referral to [facility], patient feels he is developing another stone, will call if symptoms worsen and he has yet to obtain and appt for uro and develops worsening pain and fever Essential hypertension 03246797 I10 doing well with BP medication at 7 mg with [place] [id number] JESSICA NAVA [facility] [address] [facility],[place] [address] 08/17/2020 14:39:23 08/18/2020 09:10:23 Bite of spider 524683512 W57.XXXA the patient will keep wound clean with antibiotic soap will watch to make sure the patient doesn't have any worsening or spread Active or passive immunization 365635103 Z23 will fu with booster [id number] JESSICA NAVA [facility] [address] [facility],[place] [address] 10/19/2020 13:28:45 10/19/2020 14:19:55 Active or passive immunization 342030539 Z23 will fu with booster Adult [facility] examination 938276851 Z00.00 BP 120/78 which is excellent Hyperparathyroidism 6699 9008 E21.3 will set up referral for him Kidney stone 95264070 N2 0.0 will send referral to [facility], patient feels he is developing another stone, will call if symptoms worsen and he has yet to obtain and appt for uro and develops worsening pain and fever [id number] JESSICA NAVA [facility] [address] [facility],[place] [address] 02/16/2021 15:33:11 02/16/2021 17:09:51 Spasm 93317427 R25.2 needs refill Acute pain of joint of knee 7745356600 24152 M25.562 suggested ICE, NSAIDs, elevation and bracing 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 [id number] JESSICA NAVA [facility] [address] [facility] [address] [address] 11/01/2021 08:17:38 11/01/2021 09:18:51 Essential hypertension 40417217 I10 will f/u with patient after surgery [id number] JESSICA NAVA [facility] [address] [facility] [address], ite [facility] [place] [address] 02/07/2022 11:42:46 02/08/2022 10:51:32 Localized swelling of left lower leg 7992742468 0930632 R22.42 will fu with US, not STAT Asthma 340481371 J45.20 will submit for refills Tinea pedis 0133203 B35. 3 will start on ketoconazo le cream [id number] JESSICA NAVA [facility] [address] [facility] [address],[place] [employer] [facility] [place] [address] 04/05/2022 13:44:49 04/05/2022 16:50:37 Asthma 030225996 J45.20 will submit for refills Injury of face 732615379 S07.0XXA will need XRs facial Rib pain 191323015 R07.8 1 will XR ribs Candidiasis of skin 4988 3006 B37.2 will restart the diflucan Nausea and vomiting 1692 1999 R11.2 will refill Concussion injury of brain 116800054 S06.0X0A will monitor brain injury 00630 JESSICA NAVA [facility] [address] [facility] [address] [facility] [place] [address] 08/24/2022 11:11:31 08/24/2022 14:47:43 Cavernous hemangioma of brain 060205923 D18.02 stable Hyperparathyroidism 6699 9008 E21.0 will set up referral for him Nausea and vomiting 1692 1999 R11.2 will refill for patient Essential hypertension 52413394 I10 stable Screening for malignant neoplasm of prostate 453947072 Z12.5 will give him a print out [id number] JESSICA NAVA [facility] [address] [facility] [address], [place]e [facility] [place] [address] 11/02/2022 09:42:14 11/04/2022 14:22:05 Asthma 328999686 J45.20 stable Hyperparathyroidism 6699 9008 E21.0 stable 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 stable Kidney stone 35567632 N2 0.0 will set up with tamsulosin has increased his water intake Essential hypertension 91243289 I10 stable [id number] JESSICA NAVA [facility] [address] [facility] [address] [facility],[place] [address] 12/19/2022 14:15:50 12/19/2022 15:42:01 Asthma 361956088 J45.20 stable Gastroesop hageal reflux disease 337368841 K21.9 stable Abdominal pain 80487589 R10.0 will set up [facility] [id number] JESSICA NAVA [facility] [address] [facility], [place] [address] 08/16/2023 09:52:44 08/18/2023 13:19:09 Essential hypertension 80525731 I10 stable Depression screening 171 145548 Z13.31 negative Anxiety 53248667 F41.1 stable Asthma 129958849 J45.20 needs new refill Bite of spider 416631692 W57.XXXA stable, needs refill Spasm 25956078 R25.2 needs refill Gastroesop hageal reflux disease 878495154 K21.9 stable Pain of le ft knee joint 5748646314 40204 M25.562 needs to start with knee XR to get MRI Cavernous hemangioma of brain 510729689 D18.02 stable Hyperparathyroidism 6699 9008 E21.0 stable [id number] JESSICA NAVA [facility] [address] [facility], [place] [address] 11/27/2023 09:39:52 11/27/2023 10:26:20 Renewal of prescription 705788796 Z76.0 advised Family his tory of Cardiovascular disease 424109437 Z82.49 carlie set up with [address] coronary Kidney stone 04061292 N2 0.0 can use for the prostateha ving more frequency Asthma 367401151 J45.20 needs new refill Nausea and vomiting 1693 1999 R11.2 will refill for patient Screening for malignant neoplasm of prostate 158040744 Z12.5 will give him a print out Fatigue 63583546 R53.83 needs recheck levels [id number] JESSICA NAVA [facility] [address] [facility] [address],[place] [address] 01/08/2024 11:03:30 01/09/2024 08:23:25 Exposure to Listeria moncytogenes 7751519891 27946 Z20.818 agreed to stool panel and r/o any possible listeria infection Screening for malignant neoplasm of prostate 446028002 Z12.5 will set up with screening every 3 to 6 mos [id number] JESSICA NAVA [facility] [address] [facility],[place] [address] 02/13/2024 10:37:28 02/13/2024 11:16:16 Anxiety 15225105 F41.1 stable Essential hypertension 09264430 I10 stable Post-acute COVID-19 1119 244832 U09.9 thrush, cough, sob and BP issues Candidiasis of mouth 797 58913 B37.0 improving Bite of spider 615213505 W57.XXXA stable, needs refill Gastroesop hageal reflux disease 715837577 K21.9 stable [id number] JESSICA NAVA [facility] [address] [facility],[place] [address] 03/04/2024 10:05:06 03/04/2024 14:24:21 Acute tonsillitis 07630718 J03.01 add pred to treatment [id number] JESSICA NAVA [facility] [address] [facility],[place] [address] 04/10/2024 11:16:43 04/10/2024 11:43:40 Essential hypertension 61687491 I10 stablechan ge to 10 mg BID lisinopril Cavernous hemangioma of brain 446139263 D18.02 stable Anxiety 79246575 F41.1 stable [id number] JESSICA NAVA [facility] [address] [facility],[place] [address] 05/01/2024 10:24:45 05/01/2024 11:18:40 Fall W19.XXXA will set up with f/u XR Pain of ri ght knee joint 3582568501 54860 M25.561 no XR, didn't hurt at the time, will XR now Laceration of lower leg 754428355 S81.811A healing Pain of le ft knee joint 1572309885 54809 M25.562 needs to start with knee XR to get MRI [id number] JESSICA NAVA [facility] [address] [facility] [address],[place] [address] 06/21/2024 10:12:20 06/21/2024 15:02:39 Essential hypertension 49569993 I10 stablechan ge to 10 mg BID lisinopril Atypical chest pain 1025 65684 R07.89 recommende d f/u with stress test and echo Family his tory of Multiple sclerosis 088626985 Z82.0 agreed to MRI given fam hx and on and off headaches, weakness, Health Concerns Section Related Observation LastModified by Organization Detai ls LastModified Time None Recorded Concern Status LastModified by Organization Details LastModified Time None Recorded Advance Directives Directive None Recorded Payers Encounter Date Sequence Insurance Name Policy Number Policy Mcneil Covered Member ID Mcneil Member ID Guarantor Name 02/13/2024 1 [place] [employer] Betzy Lewis [id number] Betzy Lewis 03/04/2024 1 [place] [employer] Betzy Lewis [id number] Betzy Lewis 04/10/2024 1 [place] [employer] Betzy Lewis [id number] Betzy Lewis 05/01/2024 1 [place] Betzy Lewis [id number] Betzy Lewis 06/21/2024 1 [place] [employer] Betzy Lewis [id number] Betzy Lewis Notes Date Note Type Note Provider Name a nd Address Organization Details Recorded Time 4 text/html f/u post-COVID symptoms anxiety: HTN: today in the office the patient BP is 118/78 L armthe patient is doing well on the BP medication with no side effects and no adjustment of their medications needed today at the appointmentzandra-eliseo olled on medicationdenies chest pain, sob, ankle swelling, orthopnea, palpitations can use two and half tabs, add another half a tab if needed or ativan to help drop his BP without causing hypotensive episodes thrush is improving continue to monitor his BP at home needs refill of his medication JESSICA NAVA [address] [place], [address], [facility] 02/13/2024 11:10:56 4 text/html c/o sore throat The patient is participating in this appointment via telemedicine communication with a phone call/video calling service ([employer])The patient consents to use of these platforms in place of an in-person appointment due to either sick symptoms the patient is presenting with or current office closure due to COVID exposure in order to keep our office staff and patients safe the patient is still having the sore throat, swelling, pain with swallowingthrush has resolved which is good news restart abx, add prednisone for the swellingcont with the warm salt water gargles, change out tooth brush JESSICA NAVA [address] [place], [address], [facility] 03/04/2024 14:09:51 5 text/html f/u HTN HTN: today in the office the patient BP is 118/78 L armthe patient is doing well on the BP medication with no side effects and no adjustment of their medications needed today at the appointmentwell-contr olled on medicationdenies chest pain, sob, ankle swelling, orthopnea, palpitations anxiety: stable on medication JESSICA NAVA [address] [place], [address], [facility] 04/10/2024 11:32:19 5 text/html ER f/u the patient reports he tripped over a shopping cart recommended repeat XR's and start on meloxicam the patient's abrasions are improving, no signs of infectionstill tender will continue to monitor and keep clean JESSICA NAVA [address] [place], [address], [facility] 05/01/2024 11:04:13 5 text/html c/o chest and scapula pain hx of MS pain with the left side, under the scapula radiates to the front left side of the chestfeels like a sharp shooting painstarted about last fall, pain is intermittent and no specific correlation the patient reports that pain goes on for about 3 to 4 daysthe patient reports that it is one spot the patient pain is stabbing the patient denies sob or chest pain with the pain just localized pain in the left side, always starts the patient calcium score was good pt mother has JESSICA SHANNON [address] [place], [address], [facility] 06/21/2024 10:57:09
== END 2024-07-01 13:00 | disposition home or self-care (01) ==
LOC: HO.MRI 12:59
PROVIDERS: PCP Internal Medicine; Visit Provider Physician Assistant
DX: Z82.0 Family history of epilepsy and other diseases of the nervous system (principal); R53.1 Weakness; R52 Pain, unspecified
CPT/HCPCS: 70553; A9585

== ENCOUNTER → 2024-07-01 13:10 | Outpatient (BNV) | payer MEDICAID, SELFPAY | PROVIDERS: PCP Internal Medicine; Visit Provider Radiology Diagnostic Radiology | DX: D18.02 Hemangioma of intracranial structures (principal) | CPT/HCPCS: 70553 ==

== ENCOUNTER → 2024-07-31 10:53 | Outpatient (REF) | payer MEDICAID, SELFPAY ==
--- NOTE | 2024-07-31 11:00 | CA_ITS ---
Acquisition Time: 2024-07-31 11:08:38 Total Exercise Time: 00:07:30 Test Indications: CP Medications: SEE H&P Protocol: LORAINE Max HR: 164 BPM 94% of Pred: 173 BPM Max BP: 164/78 mmHG Max Work Load: 9.3 METS Exercise stress test with exercise 7 mins 30 secs of Loraine Protocol, achieving 93% MPHR, with reports of SOB, no chest pain, without any arrythmias, with normotensive response to exercise. Without EKG changes meeting criteria for ischemia. In recovery, pt's breathing returned to baseline. Echo images obtained by tech at rest and post peak exercise. Definity contrast utilized. Test reviewed with Dr. Finney. Referred By: Tanna Patel Electronically Signed By: Mirza Zambrano
--- OUTSIDE RECORDS SUMMARY | 2024-07-31 12:22 | XMS_ITS | Clinical Summary ---
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
--- OUTSIDE RECORDS SUMMARY | 2024-07-31 12:23 | XMS_ITS | Data Portability ---
Author Organization [facility] Home Service Address [address] [place] [address] Assessment Encounter Date Assessment Date Assessment LastModified by Organization Details LastModified Time 03/04/2024 03/04/2024 Patient agreed and verbally consents to this audio and video Telehealth appt via a secure platform [email or web address] Not available 03/04/2024 14:06:29 Plan of Treatment Reminders Order Date Submit Date Provider Last Modified By Organization Details Last Modified Time Details Appointments FOLLOW UP 15 2024 10:15A M JESSICA NAVA Not available Not available Not available Lab None recorded. Referral None recorded. Procedures None recorded. Surgeries None recorded. Imaging MRI, brain, w/wo contrast 2024 025 [facility], [address] [place] [address], [id number], 06/24/2024 11:25:55 US, echocardi ogram 2024 025 [facility] Central Scheduling, [address] [place], [address], 07/05/2024 08:24:14 exercise stress test 2024 025 [facility] Scheduling, [address] [place], [address], 07/05/2024 09:18:45 XR, tibia + fibula, 2 view 2024 025 [facility] (Imaging), [address] [place] [address], [id number], 05/15/2024 08:03:31 XR, tibia + fibula, 2 view 2024 025 [facility] (Imaging), [address] [place] [address], [id number], 05/15/2024 08:03:31 XR, knee, 3 view 2024 025 [facility] (Imaging), [address] [place] [address], [address], 05/15/2024 08:03:31 XR, knee, 3 view 2024 025 [facility] (Imaging), [address] [place] [address], [id number], 05/15/2024 08:03:31 Medication Orders lisinopri l 20 mg tablet [address]/Pharmacy #0373, [address] [place], [address], 07/23/2024 15:07:42 lisinopri l 5 mg tablet [address] [place] [address]/Pharmacy #0373, [address] [place] [address], [address], 07/23/2024 15:07:44 meloxicam [address] mg tablet [address] [facility] ([place] [place]Pharmacy #0373, [address] [place], [address], 05/01/2024 11:00:24 lisinopri l 10 mg tablet [address] [facility] ([place] [place]Pharmacy #0373, [address] [place], [address], 05/01/2024 10:53:53 lorazepam 0.5 [address] [facility] ([place] [place]Pharmacy #0373, [address] [place], [address], 04/10/2024 11:29:28 amoxicill in 875 mg-potass ium clavulana te 125 mg tablet [address] [facility] ([place] [place]Pharmacy #0373, [address] [place], [address], 04/10/2024 11:26:05 prednison e 10 mg tablet 2023 024 [email or web address] [facility]/Pharmacy #0373, [address] [place], [address], 06/21/2024 10:18:43 betametha sone dipropion ate 0.05 % topical cream 2023 024 [facility] [address] [place], [address], 02/13/2024 11:04:07 famotidin e 20 mg tablet [address] [facility] ([place] [place]Pharmacy #0373, [address] [place], [address], 02/13/2024 11:04:52 lisinopri l 5 mg tablet 2023 024 [email or web address] [address] [place], [address], 07/23/2024 15:07:44 lorazepam 0.5 mg tablet [address] [facility] ([place] [place]Pharmacy #0373, [address] [place], [address], 02/13/2024 11:01:16 Patient TargetsNo targets recorded. Patient InstructionsNo instructions recorded. Reason for Referral None Reported. Results Created Date Observation Date Name Description Value Unit Range Abnormal Flag Note LastModifiedBy Organization Detail LastModifiedTime 05/28/19 25 05/25/2024 XR, knee, 3 view No observ ation record ed. [email or web address] [facility] (Imaging) [address], [place], [address], 05/28/2024 10:35:14 05/28/19 25 05/25/2024 XR, knee, 3 view No observ ation record ed. [email or web address] [facility] [address] [place] [address] [place], [address], 05/28/2024 10:35:28 07/03/19 25 07/01/2024 MRI, brain , w/wo contr ast No observ ation record ed. [email or web address] [facility] (Medical Records) [address], [place], [address], 07/02/2024 14:32:06 Result Notes None recorded. Problems Name Problem SNOMED Code Status Onset Date Resolution Date Notes Provider Name and Address Organization Details Recorded Time Diaz' s esophagu s 488987578 Active 2019 the patient is doing well since surgery, GERD, hernia, all resolved since surgery JESSICA NAVA [address] [place], [address], [facility] 1 21:14:11 Hiatal hernia 52732619 Completed 201905/29/2020 JESSICA NAVA [address] [place], [address], [facility] 1 21:13:42 Urolithi asis 16531664 Active 2019 ongoing, fu with [facility] urology JESSICA NAVA [address] [place], [address], [facility] 1 21:15:25 Divertic ulosis of colon without divertic ulitis 774998178 Active 2019 IRVING Anders [address] [place], [address], [facility] 0 10:40:30 Atypical chest pain 397693735 Completed 201905/29/2020 JESSICA NAVA [address] [place], [address], [facility] 5 10:48:15 Migraine with aura 4565885 Active 2019 TONO GarciaVIVEK [address] [place], [address], [facility] 0 11:06:47 Gastroes ophageal reflux disease 068137577 Completed 201905/29/2020 JESSICA NAVA [address] [place], [address], [facility] 3 14:40:17 Cavernou s hemangio ma of brain 677391621 Active 2019 stable, followin g with neuro, need to monitor BP JESSICA NAVA [address] [place], [address], [facility] 1 21:14:39 Essentia l hyperten scot 24568663 Active 2020 JESSICA NAVA [address] [place], [address], [facility] 1 21:15:00 History of calculus of kidney 645301135 Active 2020 JESSICA NAVA [address] [place], [address], [facility] 1 21:15:09 Anxiety 28555907 Active 2020 JESSICA NAVA [address] [place], [address], [facility] 1 21:17:59 Localize d swelling of left lower leg 9280308090 1555913 Active 2021 JESSICA NAVA [address] [place], [address], [facility] 2 11:59:59 Asthma 149150554 Active 2021 JESSICA NAVA [address] [place], [address], [facility] 2 12:02:00 Tinea pedis 4270912 Active 2021 JESSICA NAVA [address] [place], [address], [facility] 2 12:06:54 Candidal intertri go 406737059 Active 2022 JESSICA NAVA [address] [place] [address], [address], [facility] 3 14:36:22 Rib pain 207593076 Active 2022 JESSICA NAVA [address] [place] [address], [address], [facility] 3 14:36:37 Injury of face 046144300 Active 2022 JESSICA NAVA [address] [place] [address], [address], [facility] 3 14:37:12 Candidia sis of skin 68012150 Active 2022 JESSICA NAVA [address] [place] [address], [address], [facility] 3 14:39:02 Nausea and vomiting 38955060 Active 2022 JESSICA NAVA [address] [place] [address], [address], [facility] 3 14:42:40 Concussi on injury of brain 132711521 Active 2022 JESSICA NAVA [address] [place] [address], [address], [facility] 3 14:45:01 Hyperpar athyroid ism 27912745 Active 2022 JESSICA NAVA [address] [place] [address], [address], [facility] 3 11:27:45 Kidney stone 92094482 Active 2022 JESSICA NAVA [address] [place], [address], [facility] 3 09:59:23 Gastroes ophageal reflux disease 938952161 Active 2022 JESSICA NAVA [address] [place], [address], [facility] 3 14:40:17 Abdomina l pain 35424255 Active 2022 JESSICA NAVA [address] [place], [address], [facility] 3 14:40:25 Pain of left knee joint 6380969357 60967 Active 2023 JESSICA NAVA [address] [place], [address], [facility] 4 10:10:33 Fatigue 03756140 Active 2023 JESSICA NAVA [address] [place], [address], [facility] 4 10:20:44 Prostate specific antigen above referenc e range 502811028 Active 2023 Sina Gonzales DO [address] [place] [address], [address], [facility] 4 22:06:35 Hyperlip idemia 50467644 Active 2023 Sina Gonzales DO [address] [place] [address], [address], [facility] 4 16:20:33 COVID-19 704792110 Active 2023 JESSICA NAVA [address] [place], [address], [facility] 4 15:48:07 Candidia sis of mouth 13583089 Active 2023 JESSICA NAVA [address] [place], [address], [facility] 4 09:23:33 Post-acu te COVID-19 9883507532 Active 2023 JESSICA NAVA [address] [place], [address], [facility] 4 11:02:44 Acute tonsilli tis 68616364 Active 2023 JESSICA NAVA [address] [place], [address], [facility] 4 15:39:34 Pain of right knee joint 8764032207 06785 Active 2024 JESSICA NAVA [address] [place], [address], [facility] 5 10:52:38 Lacerati on of lower leg 363803020 Active 2024 JESSICA NAVA [address] [place], [address], [facility] 5 10:53:12 Lacerati on of lower leg 133575175 Active 2024 JESSICA NAVA [address] [place], [address], [facility] 5 10:53:30 Atypical chest pain 900605616 Active 2024 JESSICA NAVA [address] [place], [address], [facility] 5 10:48:15 Problem Notes None recorded. Procedures Surgical History Date Name Laterality Status Provider Name and Address Organization Details Recorded Time 0 Colonoscopy completed Amy Fiore [facility] 05/08/2019 13:46:41 Imaging Results Imaging Date Name Status LastModified by Organiz ation Details LastModified Time 05/25/2024 XR, knee, 3 view completed [email or web address] [facility] (Imaging) [address] [place], [address], 05/28/2024 10:35:14 05/25/2024 XR, knee, 3 view completed [email or web address] [address] [place], [address], 05/28/2024 10:35:28 07/01/2024 MRI, brain, w/wo contrast completed [email or web address] [facility] (Medical Records) [address] [place], [address], 07/02/2024 14:32:06 Procedure Notes None recorded. Medical Equipment None Reported. Allergies Allergen ID Allergen Name Allergen Category Reaction Reaction Severity Criticality Documentation Date Start Date Code Code System Note Provider Name and Address Organization Details Recorded Time 3662 egg extract food,medi cation diarrhea Not available Not available 04/08/2019 30048 15 RxNorm Amy cadet [facility] 0 14:07:10 3833 tramadol medicatio n Not available Not available Not available 08/12/2019 94884 RxNorm mood swing s Amy cadet [facility] 0 10:44:00 8510 Paxlovid medicatio n fever moderate Not available 02/13/2024 60123 5 UNK JESSICA NAVA [address] [place], [address], [facility] 4 11:03:43 8572 Product containin g penicilli n (product) medicatio n nausea moderate low 03/06/20242023 47600 8001 SNOMED Sravani Danis cadet [facility] 4 10:47:54 8573 prednison e medicatio n bradycard ia moderate low 03/06/20242023 8640 RxNorm JESSICA NAVA [address] [place], [address], [place] [facility] 5 11:36:16 Medications Name Sig Start Date [...] No t Available lisinopril 20 mg tablet Take 1 tablet twice a day by oral route for 90 days. 2024 active Not Available Not Available Not Avai lable meclizine 12.5 mg tablet Take 1 tablet [...] BY MOUTH THREE TIMES A DAY NEEDED 2024 active Not Available Not Available Not Avai lable tamsulosin 0.4 mg capsule TAKE 1 CAPSULE [...] Available Not Available lisinopril 5 mg tablet Take 1 tablet twice a day by oral route as directed for 90 days. 2024 active Not Available Not Available Not Avai lable hydrochlor othiazide 25 mg tablet TAKE 1/2 [...] Updated DateTime 4 172.72 cm 31.7 kg/m2 35094.3 7 g 110 /min 98 % 98 % 118 mm[Hg] 78 mm[Hg] [facility] 4 10:47:43 Date Recorded Body height Heart rate Oxygen saturation Oxygen saturation in Arterial blood by Pulse oximetry Systolic blood pressure Diastolic blood pressure Provider Name and Address Organization Details Last Updated DateTime 5 172.72 cm 91 /min 98 % 98 % 118 mm[Hg] 74 mm[Hg] Padmini Jara [facility] 5 11:26:35 Date Recorded Body height Body mass index (BMI) Body weight Heart rate Oxygen saturation Oxygen saturation in Arterial blood by Pulse oximetry Systolic blood pressure Diastolic blood pressure Provider Name and Address Organization Details Last Updated DateTime 5 172.72 cm 32.8 kg/m2 10434.8 7 g 104 /min 96 % 96 % 112 mm[Hg] 74 mm[Hg] Padmini Drew [facility] 5 10:31:41 Date Recorded Body height Body mass index (BMI) Body weight Heart rate Oxygen saturation Oxygen saturation in Arterial blood by Pulse oximetry Systolic blood pressure Diastolic blood pressure Provider Name and Address Organization Details Last Updated DateTime 5 172.72 cm 33.3 kg/m2 91261.7 3 g 94 /min 99 % 99 % 132 mm[Hg] 82 mm[Hg] Catarino More [facility] 5 10:20:14 Social History Question Answer Notes LastModified by Organizat ion Details LastModified Time Tobacco Smoking Status Former [facility]oker Not Available [facility] 02/04/2020 03:36:24 What Was The Date Of [...] mcg/0.3 mL dose 2 completed Lily Gencarelle [facility] 12/19/2022 14:15:56 Influenza, split virus, quadrivalent, preservative 0 completed Lily Gencarelle helio [facility] 12/19/2022 14:15:55 COVID-19, mRNA, LNP-S, PF, 30 mcg/0.3 mL dose 1 completed Lily Gencarelle null, [facility] 12/19/2022 14:15:55 COVID-19, mRNA, LNP-S, PF, 30 mcg/0.3 mL dose 1 completed Lily Gencarelle [facility], [facility] Internal [facility] 12/19/2022 14:15:56 Tdap 1 completed JESSICA NAVA [address] [place], [address], [facility] Internal [facility] 09/03/2020 12:08:49 Past Encounters Encounter ID Performer Location Encounter Start Date Encounter Closed Date Diagnosis/Indication Diagnosis SNOMED-CT Code Diagnosis ICD10 Code Diagnosis Note [id number] Sina Gonzales [address],[place] [address] 04/08/2019 13:52:25 04/08/2019 15:00:03 Kidney stone 75209942 N20.0 Pain in testicle 3161655 9 N50.819 possible epididymit is Nausea 973972854 R11.0 Atypical chest pain 1025 57998 R07.89 [id number] July IRVING Garcia [facility] [address] [place] [address],[place] [address] 04/23/2019 10:55:37 04/23/2019 12:29:15 Pain in testicle 09188105 N50.819 Nausea 799511041 R11.0 Anxiety 68954080 F41.9 Diarrhea 15458875 R19.7 Hydronephrosis 35142900 N13.30 Generalize d abdominal pain 407092221 R10.84 [id number] Sina Gonzales [facility] Internal [facility] [address] [facility],[place] [address] 05/10/2019 09:54:12 05/10/2019 11:00:44 Diaz's esophagus 867062348 K22.70 Hiatal hernia 08038425 K 44.9 Urolithiasis 26652523 N2 0.9 Diverticul osis of colon without diverticulitis 916000721 K57.30 Atypical chest pain 1025 66256 R07.89 [id number] Sina Gonzales [facility] [address] [facility], [place] [address] 06/21/2019 11:05:32 06/21/2019 12:11:20 Gastroesophageal reflux disease 955659367 K21.9 Atypical chest pain 1025 46640 R07.89 likely gerd related Anxiety 79146268 F41.9 [id number] Sina Gonzales [facility] [address] [facility], [place] [address] 07/31/2019 08:46:19 07/31/2019 10:54:40 Migraine with aura 2207322 G43.109 Gastroesop hageal reflux disease 429081478 K21.9 Cavernous hemangioma of brain 072408073 D18.02 [id number] Sina Gonzales [facility] Internal [facility] [address] [facility], [place] [address] 08/12/2019 10:34:36 08/12/2019 11:21:33 Migraine with aura 2756953 G43.109 Gastroesop hageal reflux disease 308091515 K21.9 Cavernous hemangioma of brain 569474229 D18.02 Posterior rhinorrhea 758 21714 R09.82 Asthma 632127212 J45.90 9 [id number] Sina Gonzales [facility] [address] [facility], [place] [address] 08/23/2019 14:07:30 08/23/2019 14:43:59 Acute otitis media 9001355 H66.91 fluid and bulging TM in the right ear decreased hearing and pain ringing in the right ear Tinnitus 19553517 H93.11 will have him see ENT for possible eustachian tube dysfunctio n and chronic cryptic tonsilliti s [id number] Sina Gonzales [facility] [address] [facility], [place] [address] 09/03/2019 10:50:45 09/03/2019 11:27:14 Essential hypertension 74303655 I10 will try starting patient on lisinopril will f/u in two weeks [id number] Sina Gonzales DO [facility] [address] [facility], [place] [facility] [place] [address] 09/17/2019 10:17:13 09/17/2019 11:16:34 Gastroesophageal reflux disease 667340538 K21.0 waiting on back ordered script using FDgard for the time being Dizziness 380710030 R42 is being seen by ENT > 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's ear will f/u at ENT for second opinion Diaz's esophagus 3029 49520 K22.70 send for referral for surgery consult [id number] Sina Gonzales [facility] [address] [facility], [place] [facility] [place] [address] 09/27/2019 11:32:57 09/27/2019 14:10:03 Right upper quadrant pain 593337614 R10.11 patient has a positive Bernstein's sign on exam RUQ pain and related to eating heavy fat meal will f/u after US results Fatigue 86596615 R53.83 as per HPI discussion [id number] Sina Gonzales DO [facility] [address] [facility],[place] [address] 10/11/2019 10:25:52 10/11/2019 15:20:49 Fatigue 94537821 R53.83 will have pt do these labs so he does not have to pay out of pocket for them discussed what labs he already has done Kidney stone 20293577 N2 0.0 take medication if start to develop symptoms of pyelonephr itis including increase in pain around kidneys, fever Gastroesop hageal reflux disease 036836059 K21.0 has appt with specialist [id number] Sina Gonzales DO [facility] [address] [facility],[place] [address] 11/06/2019 10:11:55 11/06/2019 13:53:26 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 but not antibodies , following with [facility] History of calculus of kidney 336729057 Z87.442 would like to be tested for PH-1 mutation > will evaluate kidneys Headache 27460105 R51 still have intermitte nt severe headaches but BP has been good > has fu with neuro Constipation 61153391 K5 9.00 related to use of oxycotin [id number] Sina Gonzales [facility] [address] [facility] [place] [address] 12/17/2019 09:31:02 12/17/2019 09:57:15 Multiple benign melanocytic nevi 669643802 D22.9 would like referral for evalutatio n Food poisoning 55158467 A05.9 resolved Essential hypertension 77833116 I10 the patient BP is excellent today Butterfly rash 83170906 R21 will check a rheumatoid panel [id number] Sina Gonzales [facility] [address] [facility],[place] [address] 01/07/2020 14:40:44 01/07/2020 15:31:58 Bite of spider 586439800 W57.XXXA the patient will keep wound clean with antibiotic soap will watch to make sure the patient doesn't have any worsening or spread Contact dermatitis 89049 004 L25.9 will treat with steriod cream to prevent spread [id number] Sina Gonzales [facility] [address] [facility] [address] [place] [address] 01/31/2020 10:52:24 01/31/2020 12:04:15 Essential hypertension 31882029 I10 the patient BP is elevating needs to start back on lisinopril at half a tab Anxiety 45013978 F41.9 stable History of calculus of kidney 294498345 Z87.442 will refer to [facility] per patient no one else here takes his insurance [id number] Sina Gonzales [facility] [address] [facility] [address] [place] [address] 02/18/2020 13:44:53 02/18/2020 14:44:54 Anxiety 69363432 F41.9 will start on sertraline Bite of spider 456373115 W57.XXXA the patient will keep wound clean with antibiotic soap will watch to make sure the patient doesn't have any worsening or spread Essential hypertension 49450225 I10 will increase to 15 mg and then 20 mg [id number] Sina Gonzales [facility] [address] [facility], [place] [address] 03/18/2020 08:17:34 03/18/2020 16:09:33 Essential hypertension 87146716 I10 needs to be cut back down to 5 mg and start a BB Palpitations 78249099 R0 0.2 will fu after start of medication s and see if improvemen t Orthostati c hypotension 72972124 I95.1 will see if med adjustment helps with this Anxiety 05030712 F41.9 will call when he wants to start on wellbutrin [id number] Sina Gonzales [facility] [address] [facility], ite COUNTS INCLUDE [address] [facility] [place] [address] 05/29/2020 08:25:46 05/29/2020 16:36:44 Low back pain 264028507 M54.5 sprain/MSK injury from impact trauma will fu as needed Kidney stone 42184299 N2 0.0 will send referral to [facility], patient feels he is developing another stone, will call if symptoms worsen and he has yet to obtain and appt for uro and develops worsening pain and fever Essential hypertension 13368418 I10 doing well with BP medication at 7 mg with cutting dosages will just do [id number] Sina Gonzales [facility] [address] [place] [address],[place] [address] 08/17/2020 14:39:23 08/18/2020 09:10:23 Bite of spider 083940472 W57.XXXA the patient will keep wound clean with antibiotic soap will watch to make sure the patient doesn't have any worsening or spread Active or passive immunization 535999148 Z23 will fu with booster [id number] Sina Gonzales [facility] [address] [facility], ite [facility] [place] [address] 10/19/2020 13:28:45 10/19/2020 14:19:55 Active or passive immunization 548795855 Z23 will fu with booster Adult heal th examination 851935978 Z00.00 BP 120/78 which is excellent Hyperparathyroidism 6699 9008 E21.3 will set up referral for him Kidney stone 70269467 N2 0.0 will send referral to [facility], patient feels he is developing another stone, will call if symptoms worsen and he has yet to obtain and appt for uro and develops worsening pain and fever [id number] Sina Gonzales [facility] [address] [place] [address] 02/16/2021 15:33:11 02/16/2021 17:09:51 Spasm 05488663 R25.2 needs refill Acute pain of joint of knee 9530273302 88872 M25.562 suggested ICE, NSAIDs, elevation and bracing Cavernous hemangioma of brain 122835673 D18.02 stable [id number] Sina Gonzales [facility] [facility] [address] [place] [address] 11/01/2021 08:17:38 11/01/2021 09:18:51 Essential hypertension [id number] I10 will f/u with patient after surgery [id number] Sina Gonzales [facility] Internal [facility] [address] [place] [address] 02/07/2022 11:42:46 02/08/2022 10:51:32 Localized swelling of left lower leg [id number] R22.42 will fu with US, not STAT Asthma 246587384 J45.20 will submit for refills Tinea pedis 4676076 B35. 3 will start on ketoconazo le cream [id number] Sina Gonzales [facility] [address] [facility],[place] [address] 04/05/2022 13:44:49 04/05/2022 16:50:37 Asthma 776115338 J45.20 will submit for refills Injury of face 412392646 S07.0XXA will need XRs facial Rib pain 902313552 R07.8 1 will XR ribs Candidiasis of skin 4988 3006 B37.2 will restart the diflucan Nausea and vomiting 1693 2000 R11.2 will refill Concussion injury of brain 138102742 S06.0X0A will monitor brain injury [id number] Sina Gonzales [facility] [address] [facility],[place] [address] 08/24/2022 11:11:31 08/24/2022 14:47:43 Cavernous hemangioma of brain 617134855 D18.02 stable Hyperparathyroidism 6699 9008 E21.0 will set up referral for him Nausea and vomiting 1693 2000 R11.2 will refill for patient Essential hypertension 75982857 I10 stable Screening for malignant neoplasm of prostate 198079946 Z12.5 will give him a print out [id number] Sina Gonzales [facility] [address] [facility],[place] [address] 11/02/2022 09:42:14 11/04/2022 14:22:05 Asthma 597083343 J45.20 stable Hyperparathyroidism 6699 9008 E21.0 stable Diaz's esophagus 3029 09094 K22.70 stable Kidney stone 07703855 N2 0.0 will set up with tamsulosin has increased his water intake Essential hypertension 63859433 I10 stable [id number] [facility] [address] [facility],[place] [address] 12/19/2022 14:15:50 12/19/2022 15:42:01 Asthma 525448551 J45.20 stable Gastroesop hageal reflux disease 149099303 K21.9 stable Abdominal pain 09272053 R10.0 will set up iw [id number] Sina Gonzales [facility] [address] [facility],[place] [address] 08/16/2023 09:52:44 08/18/2023 13:19:09 Essential hypertension 82745133 I10 stable Depression screening 171 099853 Z13.31 negative Anxiety 03640962 F41.1 stable Asthma 295561921 J45.20 needs new refill Bite of spider 282231351 W57.XXXA stable, needs refill Spasm 31742311 R25.2 needs refill Gastroesop hageal reflux disease 760653514 K21.9 stable Pain of le ft knee joint 3690355174 27027 M25.562 needs to start with knee XR to get MRI Cavernous hemangioma of brain 851993078 D18.02 stable Hyperparathyroidism 6699 9008 E21.0 stable [id number] Sina Gonzales [facility] [address] [facility],[place] [address] 11/27/2023 09:39:52 11/27/2023 10:26:20 Renewal of prescription 498858492 Z76.0 advised Family his tory of Cardiovascular disease 944838754 Z82.[address] up with [address] coronary Kidney stone 32955722 N2 0.0 can use for the prostateha ving more frequency Asthma 904104882 J45.20 needs new refill Nausea and vomiting 1693 1999 R11.2 will refill for patient Screening for malignant neoplasm of prostate 475112016 Z12.5 will give him a print out Fatigue 56511163 R53.83 needs recheck levels [id number] Sina Gonzales [facility] Internal [facility] [address] [facility],[place] [address] 01/08/2024 11:03:30 01/09/2024 08:23:25 Exposure to Listeria moncytogenes 1338477800 91233 Z20.818 agreed to stool panel and r/o any possible listeria infection Screening for malignant neoplasm of prostate 424967562 Z12.5 will set up with screening every 3 to 6 mos [id number] Sina Gonzales [facility] Medicine [address] [facility],[place] [address] 02/13/2024 10:37:28 02/13/2024 11:16:16 Anxiety 97286703 F41.1 stable Essential hypertension 41816520 I10 stable Post-acute COVID-19 1119 114602 U09.9 thrush, cough, sob and BP issues Candidiasis of mouth 797 19956 B37.0 improving Bite of spider 442688966 W57.XXXA stable, needs refill Gastroesop hageal reflux disease 913616285 K21.9 stable [id number] Sina Gonzales [facility] [address] [facility],[place] [address] 03/04/2024 10:05:06 03/04/2024 14:24:21 Acute tonsillitis 56714607 J03.01 add pred to treatment [id number] Sina Gonzales [facility] [address] [facility] [address] [address] 04/10/2024 11:16:43 04/10/2024 11:43:40 Essential hypertension 68452827 I10 stablechan ge to 10 mg BID lisinopril 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 Anxiety 72669707 F41.1 stable [id number] Sina Gonzales [facility] [address] [facility] [address] [address] 05/01/2024 10:24:45 05/01/2024 11:18:40 Fall W19.XXXA will set up with f/u XR Pain of ri ght knee joint 5434951540 99597 M25.561 no XR, didn't hurt at the time, will XR now Laceration of lower leg 628678612 S81.811A healing Pain of le ft knee joint 4983561752 20285 M25.562 needs to start with knee XR to get MRI [id number] Sina Gonzales [facility] [address] [facility] [address] [facility] [place] [address] 06/21/2024 10:12:20 06/21/2024 15:02:39 Essential hypertension 68503155 I10 stablechan ge to 10 mg BID lisinopril Atypical chest pain 1025 73913 R07.89 recommende d f/u with stress test and echo Family his tory of Multiple sclerosis 623154690 Z82.0 agreed to MRI given fam hx and on and off headaches, weakness, Health Concerns Section Related Observation LastModified by Organization Detai ls LastModified Time None Recorded Concern Status LastModified by Organization Details LastModified Time None Recorded Advance Directives Directive None Recorded Payers Encounter Date Sequence Insurance Name Policy Number Policy Mcneil Covered Member ID Mcneil Member ID Guarantor Name 02/13/2024 1 [place] [facility] Betzy Lewis [id number] Betzy Lewis 03/04/2024 1 [place] Vasque[place] [id number] Betzy Lewis 04/10/2024 1 [place] Bo Lewis [id number] Betzy Lewis 05/01/2024 1 [place] Bo Lewis [id number] Betzy Lewis 06/21/2024 1 [place] Vas[place] [id number] Betzy Vasquezt Notes Date Note Type Note Provider Name a nd Address Organization Details Recorded Time 4 text/html f/u post-COVID symptoms anxiety: HTN: today in the office the patient BP is 118/78 L armthe patient is doing well on the BP medication with no side effects and no adjustment of their medications [facility] medicationdenies chest pain, sob, ankle swelling, orthopnea, palpitations can use two and half tabs, add another half a tab if needed or ativan to help drop his BP without causing hypotensive episodes thrush is improving continue to monitor his BP at home needs refill of his medication JESSICA NAVA [address] [place] [address], [address], [facility] 02/13/2024 11:10:56 4 text/html c/o sore throat The patient is participating in this appointment via telemedicine communication with a phone call/video calling service ([employer])The patient consents to use of these platforms [...] change out tooth brush JESSICA NAVA [address] [place], [address], [facility] 03/04/2024 14:09:51 5 text/html f/u HTN HTN: today in the office the patient BP is 118/78 L armthe patient is doing well on the BP medication with no side effects and no adjustment of their medications [facility] medicationdenies chest pain, sob, ankle swelling, orthopnea, palpitations anxiety: stable on medication JESSICA NAVA [address] [place], [address], [facility] 04/10/2024 11:32:19 5 text/html ER f/u the patient reports he tripped over a shopping cart recommended repeat XR's and start on meloxicam the patient's abrasions are improving, no signs of infectionstill tender will continue to monitor and keep clean JESSICA NAVA [address] [place], [address], [facility] 05/01/2024 11:04:13 5 text/html c/o [...] score was good pt mother has JESSICA NAVA [address] [place], [address], [facility] 06/21/2024 10:57:09
== END ==
LOC: HO.CARD 10:53
PROVIDERS: PCP Internal Medicine; Visit Provider Physician Assistant
DX: R07.89 Other chest pain (principal)
CPT/HCPCS: 93350; Q9957

== ENCOUNTER → 2024-07-31 11:00 | Outpatient (BNV) | payer MEDICAID, SELFPAY | PROVIDERS: PCP Internal Medicine | DX: R07.9 Chest pain, unspecified (principal); R06.02 Shortness of breath | CPT/HCPCS: 93016; 93018; 93350; 93352 ==

== ENCOUNTER 2024-08-14 07:29 | Outpatient (REF) | payer MEDICAID, SELFPAY ==
--- OUTSIDE RECORDS SUMMARY | 2024-08-14 07:32 | XMS_ITS | Data Portability ---
Author Organization [facility] Service Address [address] [place] [address] Assessment Encounter Date Assessment Date Assessment LastModified by Organization Details LastModified Time 03/04/2024 03/04/2024 Patient agreed and verbally consents to this audio and video Telehealth appt via a secure platform [email or web address] Not available 03/04/2024 14:06:29 Plan of Treatment Reminders Order Date Submit Date Provider Last Modified By Organization Details Last Modified Time Details Appointments None recorded. Lab CMP, serum or plasma 2024 [facility], [address] [place] [address], [address], 10:32:56 TEREZA (antinucle ar antibodies ) screen, serum 2024 [facility], [address] [place] [address], [address], 10:32:57 C reactive protein, QN, serum or plasma 2024 025 [facility], [address] [place] [address], [address], 5 10:32:56 CBC w/ auto diff 2024 [facility], [address] [place] [address], [address], 5 10:32:56 CK (creatine kinase), total, serum 2024 [facility], [address] [place] [address], [address], 10:32:57 ESR (erythrocy te sedimentat ion rate), blood 2024 [facility], [address] [place] [address], [address], 10:32:56 uric acid, serum or plasma 2024 [facility], [address] [place] [address], [address], 10:32:56 anaplasma phagocytop hilum + ehrlichia chaffeensi s IgG + IgM panel, serum 2024 [facility], [address] [place] [address], [address], 10:32:57 vitamin B12 + folate, serum or blood 2024 [facility], [address] [place] [address], [address], 10:32:56 iron + TIBC + ferritin, serum 2024 [facility], [address] [place] [address], [address], 10:32:56 lyme disease igg+igm, serum, reflex western blot 2024 [facility], [address] [place] [address], [address], 10:32:57 Referral None recorded. Procedures None recorded. Surgeries None recorded. Imaging XR, foot, 3 or more view 2024 [email or web address] [facility], [place], [address], 5 13:39:16 MRI, brain, w/wo contrast [address] [place] [address] Mri, [address] [place], [address], 5 11:25:55 US, echocardio gram 2024 [facility], [address] [place], [address], 5 08:24:14 exercise stress test 2024 [facility], [address] [place], [address], 5 09:18:45 XR, tibia + fibula, 2 view [address] [place] [address] (Imaging), [address] [place], [address], 5 08:03:31 XR, tibia + fibula, 2 view [address] [place] [address] (Imaging), [address] [place], [address], 5 08:03:31 XR, knee, 3 view [address] [place] [address] (Imaging), [address] [place], [address], 5 08:03:31 XR, knee, 3 view [address] [place] [address] (Imaging), [address] [place], [address], 5 08:03:31 Medication Orders lisinopril 20 mg tablet 2024 025 [email or web address] [facility] #037[facility], [address] [place], [address], 5 15:07:42 lisinopril 5 mg tablet 2024 025 [email or web address] [facility] #037[facility], [address] [place], [address], 5 15:07:44 meloxicam 15 mg tablet 2024 025 [facility] #0373, [address] [place], [address], 5 11:00:24 lisinopril 10 mg tablet 2024 025 [facility] #037[facility], [address] [place], [address], 5 10:53:53 lorazepam 0.5 mg tablet 2024 025 [facility] #0373, [address] [place], [address], 5 11:29:28 amoxicilli n 875 mg-potassi um clavulanat e 125 mg tablet 2023 025 [facility] #0373, [address] [place], [address], 5 11:26:05 prednisone 10 mg tablet 2023 024 [email or web address] [facility] #0373, [address] [place], [address], 5 10:18:43 Patient TargetsNo targets recorded. Patient InstructionsNo instructions recorded. Reason for Referral None Reported. Results Created Date Observation Date Name Description Value Unit Range Abnormal Flag Note LastModifiedBy Organization Detail LastModifiedTime 05/28/19 25 05/25/2024 XR, knee, 3 view No observ ation record ed. [email or web address] [facility] (Imaging) [address] [place], [address], 05/28/2024 10:35:14 05/28/19 25 05/25/2024 XR, knee, 3 view No observ ation record ed. [email or web address] [address] [place], [address], 05/28/2024 10:35:28 07/03/19 25 07/01/2024 MRI, brain , w/wo contr ast No observ ation record ed. [facility] (Medical Records) [address] [place], [address], 08/05/2024 10:38:58 08/01/19 25 07/31/2024 exerc ise stres s test No observ ation record ed. [facility] (Medical Records) [address] [place], [address], 08/05/2024 10:38:58 08/01/19 25 07/31/2024 exerc ise stres s test No observ ation record ed. [facility] (Medical Records) [address] [place], [address], 08/05/2024 10:38:58 Result Notes None recorded. Problems Name Problem SNOMED Code Status Onset Date Resolution Date Notes Provider Name and Address Organization Details Recorded Time Diaz' s esophagu s 461995042 Active 2019 the patient is doing well since surgery, GERD, hernia, all resolved since surgery JESSICA NAVA [address] [place], [address], [facility] [place] 1 21:14:11 Hiatal hernia 83325439 Completed 201905/29/2020 JESSICA NAVA [address] [place], [address], [facility] [place] 1 21:13:42 Urolithi asis 03598485 Active 2019 ongoing, fu with [facility] urology JESSICA NAVA [address] [place], [address], [facility] [place] 1 21:15:25 Divertic ulosis of colon without divertic ulitis 193540485 Active 2019 JoseIRVING [address] [place], [address], [facility] [place] 0 10:40:30 Atypical chest pain 069944619 Completed 201905/29/2020 JESSICA NAVA [address] [place], [address], [facility] [place] 5 10:48:15 Migraine with aura 5147554 Active 2019 JoseIRVING [address] [place], [address], [facility] [place] 0 11:06:47 Gastroes ophageal reflux disease 127209204 Completed 201905/29/2020 JESSICA NAVA [address] [place], [address], [facility] [place] 3 14:40:17 Cavernou s hemangio ma of brain 295929771 Active 2019 stable, followin g with neuro, need to monitor BP JESSICA NAVA [address] [place], [address], [facility] [place] 1 21:14:39 Essentia l hyperten scot 05793983 Active 2020 JESSICA NAVA [address] [place], [address], [facility] [place] 5 10:32:58 History of calculus of kidney 253168906 Active 2020 JESSICA NAVA [address] [place], [address], [facility] [place] 1 21:15:09 Anxiety 81928896 Active 2020 JESSICA NAVA [address] [place], [address], [facility] 1 21:17:59 Localize d swelling of left lower leg 5249716498 4734330 Active 2021 JESSICA NAVA [address] [place], [address], [facility] [place] 2 11:59:59 Asthma 964054309 Active 2021 JESSICA NAVA [address] [place], [address], [facility] [place] 2 12:02:00 Tinea pedis 2369193 Active 2021 JESSICA NAVA [address] [place], [address], [facility] [place] 2 12:06:54 Candidal intertri go 731632129 Active 2022 JESSICA NAVA [address] [place], [address], [facility] [place] 3 14:36:22 Rib pain 178163525 Active 2022 JESSICA NAVA [address] [place], [address], [facility] [place] 3 14:36:37 Injury of face 997894948 Active 2022 JESSICA NAVA [address] [place], [address], [facility] [place] 3 14:37:12 Candidia sis of skin 73164806 Active 2022 JESSICA NAVA [address] [place], [address], [facility] [place] 3 14:39:02 Nausea and vomiting 48906304 Active 2022 JESSICA NAVA [address] [place], [address], [facility] [place] 3 14:42:40 Concussi on injury of brain 127762699 Active 2022 JESSICA NAVA [address] [place], [address], [facility] [place] 3 14:45:01 Hyperpar athyroid ism 85426064 Active 2022 JESSICA NAVA [address] [place], [address], [facility] [place] 3 11:27:45 Kidney stone 66564463 Active 2022 JESSICA NAVA [address] [place] [address], [address], [facility] [place] 3 09:59:23 Gastroes ophageal reflux disease 520726244 Active 2022 JESSICA NAVA [address] [place] [address], [address], [facility] [place] 3 14:40:17 Abdomina l pain 34706932 Active 2022 JESSICA NAVA [address] [place] [address], [address], [facility] [place] 3 14:40:25 Pain of left knee joint 3575478560 70344 Active 2023 JESSICA NAVA [address] [place] [address], [address], [facility] [place] 4 10:10:33 Fatigue 85505124 Active 2023 JESSICA NAVA [address] [place] [address], [address], [facility] [place] 4 10:20:44 Prostate specific antigen above referenc e range 341016249 Active 2023 Sina Gonzales DO [address] [place] [address], [address], [facility] [place] 4 22:06:35 Hyperlip idemia 14451369 Active 2023 Sina Gonzales DO [address] [place], [address], [facility] [place] 4 16:20:33 COVID-19 881820168 Active 2023 JESSICA NAVA [address] [place] [address], [address], [facility] [place] 4 15:48:07 Candidia sis of mouth 33413177 Active 2023 JESSICA NAVA [address] [place] [address], [address], [facility] [place] 4 09:23:33 Post-acu te COVID-19 5658119511 Active 2023 JESSICA NAVA [address] [place] [address], [address], [facility] [place] 4 11:02:44 Acute tonsilli tis 08467354 Active 2023 JESSICA NAVA [address] [place] [address], [address], [facility] [place] 4 15:39:34 Pain of right knee joint 5996633213 27200 Active 2024 JESSICA NAVA [address] [place] [address], [address], [facility] [place] 5 10:52:38 Lacerati on of lower leg 942518451 Active 2024 JESSICA NAVA [address] [place] [address], [address], [facility] [place] 5 10:53:12 Lacerati on of lower leg 746195513 Active 2024 JESSICA NAVA [address] [place] [address], [address], [facility] [place] 5 10:53:30 Atypical chest pain 342880476 Active 2024 JESSICA NAVA [address] [place], [address], [facility] [place] 5 10:48:15 Disorder followin g viral disease 741302606 Active 2024 JESSICA NAVA [address] [place], [address], [facility] [place] 5 10:27:29 Muscle pain 80088954 Active 2024 JESSICA NAVA [address] [place], [address], [facility] [place] 5 10:29:59 Pain in left foot 0945393518 10766 Active 2024 JESSICA NAVA [address] [place], [address], [facility] [place] 5 10:33:35 Problem Notes None recorded. Procedures Surgical History Date Name Laterality Status Provider Name and Address Organization Details Recorded Time 0 Colonoscopy completed Amy Fiore [facility] 05/08/2019 13:46:41 Imaging Results Imaging Date Name Status LastModified by Organiz ation Details LastModified Time 05/25/2024 XR, knee, 3 view completed [address] (Imaging) [address] [place], [address], 05/28/2024 10:35:14 05/25/2024 XR, knee, 3 view completed [address] [facility] [address] [place] [address] [place], [address], 05/28/2024 10:35:28 07/01/2024 MRI, brain, w/wo contrast completed [facility] (Medical Records) [address] [place], [address], 08/05/2024 10:38:58 07/31/2024 exercise stress test completed [facility] (Medical Records) [address] [place], [address], 08/05/2024 10:38:58 07/31/2024 exercise stress test completed [facility] (Medical Records) [address] [place], [address], 08/05/2024 10:38:58 Procedure Notes None recorded. Medical Equipment None Reported. Allergies Allergen ID Allergen Name Allergen Category Reaction Reaction Severity Criticality Documentation Date Start Date Code Code System Note Provider Name and Address Organization Details Recorded Time 3662 egg extract food,medi cation diarrhea Not available Not available 04/08/2019 19107 15 RxNorm Amy cadet [facility] 0 14:07:10 3833 tramadol medicatio n Not available Not available Not available 08/12/2019 17484 RxNorm mood swing s Amy cadet [facility] 0 10:44:00 8510 Paxlovid medicatio n fever moderate Not available 02/13/2024 09890 5 UNK JESSICA NAVA [address] [place], [address], [facility] [place] 4 11:03:43 8572 Product containin g penicilli n (product) medicatio n nausea moderate low 03/06/20242023 81684 8001 SNOMED Sravani Danis cadet [facility] 4 10:47:54 8573 prednison e medicatio n bradycard ia moderate low 03/06/20242023 8640 RxNorm JESSICA NAVA [address] [place], [address], [facility] [place] 5 11:36:16 Medications Name Sig [...] 2023 active Not Available Not Available Not David trivedi clonidine HCl 0.1 mg tablet TAKE 1 [...] lisinopril 20 mg tablet TAKE 1 TABLET TWICE A DAY BY ORAL ROUTE FOR 90 DAYS. active Not Available Not Available No t [...] 1 TABLET BY MOUTH TWICE A DAY DIRECTED FOR 90 DAYS active Not Available Not Available No [...] Not Available Vitals Date Recorded Body height Heart rate Oxygen saturation Oxygen saturation in Arterial blood by Pulse oximetry Systolic blood pressure Diastolic blood pressure Provider Name and Address Organization Details Last Updated DateTime 5 172.72 cm 91 /min 98 % 98 % 118 mm[Hg] 74 mm[Hg] Padmini Jara [facility] 5 11:26:35 Date Recorded Body height Body mass index (BMI) Body weight Heart rate Oxygen saturation Oxygen saturation in Arterial blood by Pulse oximetry Systolic blood pressure Diastolic blood pressure Provider Name and Address Organization Details Last Updated DateTime 5 172.72 cm 32.8 kg/m2 69246.8 7 g 104 /min 96 % 96 % 112 mm[Hg] 74 mm[Hg] Padmini Jara [facility] 5 10:31:41 Date Recorded Body height Body mass index (BMI) Body weight Heart rate Oxygen saturation Oxygen saturation in Arterial blood by Pulse oximetry Systolic blood pressure Diastolic blood pressure Provider Name and Address Organization Details Last Updated DateTime 5 172.72 cm 33.3 kg/m2 76805.7 3 g 94 /min 99 % 99 % 132 mm[Hg] 82 mm[Hg] Catarino Moer [facility] 5 10:20:14 Date Recorded Body height Body mass index (BMI) Body weight Heart rate Oxygen saturation Oxygen saturation in Arterial blood by Pulse oximetry Systolic blood pressure Diastolic blood pressure Provider Name and Address Organization Details Last Updated DateTime 5 172.72 cm 31.6 kg/m2 41876.2 1 g 84 /min 97 % 97 % 114 mm[Hg] 68 mm[Hg] Padmini Marek [facility] 5 10:20:46 Social History Question Answer Notes LastModified by Organizat ion Details LastModified Time Tobacco Smoking Status Former Smoker Not Available [facility] 02/04/2020 03:36:24 What Was The Date Of Your Most Recent Tobacco Screening? 08/05/2024 [email or web address] Information not available 08/05/2024 Sex: Unknown Functional Status None recorded. Mental Status None recorded. Family History Nothing Reported. Medical History No medical history recorded. Immunizations Vaccine Type Date Status Note Provider Nam e and Address Organization Details Recorded Time COVID-19, mRNA, LNP-S, PF, 30 mcg/0.3 mL dose 2 completed Lily Gencarelle [facility] 12/19/2022 14:15:56 Influenza, split virus, quadrivalent, preservative 0 completed Lily Gencarelle [facility] 12/19/2022 14:15:55 COVID-19, mRNA, LNP-S, PF, 30 mcg/0.3 mL dose 1 completed Lily Gencarelle null [facility] 12/19/2022 14:15:55 COVID-19, mRNA, LNP-S, PF, 30 mcg/0.3 mL dose 1 completed Lily Gencarelle [facility] 12/19/2022 14:15:56 Tdap 1 completed JESSICA NAVA [address] [place], [address], [facility] [place] 09/03/2020 12:08:49 Past Encounters Encounter ID Performer Location Encounter Start Date Encounter Closed Date Diagnosis/Indication Diagnosis SNOMED-CT Code Diagnosis ICD10 Code Diagnosis Note [id number] Sina Gonzales [facility] [address] [facility],[place] [address] 04/08/2019 13:52:25 04/08/2019 15:00:03 Kidney stone 41763405 N20.0 Pain in testicle 8609474 9 N50.819 possible epididymit is Nausea 183482418 R11.0 Atypical chest pain 1025 81163 R07.89 [id number] IRVING Anders [facility] [address] [facility],[place] [address] 04/23/2019 10:55:37 04/23/2019 12:29:15 Pain in testicle 91014004 N50.819 Nausea 992037328 R11.0 Anxiety 62751536 F41.9 Diarrhea 51117325 R19.7 Hydronephrosis 18211552 N13.30 Generalize d abdominal pain 268454698 R10.84 [id number] Sina Gonzales [facility] [address] [facility],[place] [address] 05/10/2019 09:54:12 05/10/2019 11:00:44 Diaz's esophagus 297857987 K22.70 Hiatal hernia 60833237 K 44.9 Urolithiasis 63340327 N2 0.9 Diverticul osis of colon without diverticulitis 468217477 K57.30 Atypical chest pain 1025 33327 R07.89 [id number] Sina Gonzales [facility] [address] [facility] [address] 06/21/2019 11:05:32 06/21/2019 12:11:20 Gastroesophageal reflux disease 773960169 K21.9 Atypical chest pain 1025 65230 R07.89 likely gerd related Anxiety 24698757 F41.9 [id number] Sina Gonzales [facility] [address] [facility],[place] [address] 07/31/2019 08:46:19 07/31/2019 10:54:40 Migraine with aura 3175513 G43.109 Gastroesop hageal reflux disease 428493152 K21.9 Cavernous hemangioma of brain 807641412 D18.02 [id number] Sina Gonzales [facility] [address] [facility] [address] 08/12/2019 10:34:36 08/12/2019 11:21:33 Migraine with aura 2392237 G43.109 Gastroesop hageal reflux disease 440901139 K21.9 Cavernous hemangioma of brain 663359056 D18.02 Posterior rhinorrhea 758 98754 R09.82 Asthma 187154102 J45.90 [id number] Sina Gonzales [facility] [address] [facility] [address] 08/23/2019 14:07:30 08/23/2019 14:43:59 Acute otitis media 1275365 H66.91 fluid and bulging TM in the right ear decreased hearing and pain ringing in the right ear Tinnitus 25200719 H93.11 will have him see ENT for possible eustachian tube dysfunctio n and chronic cryptic tonsilliti s [id number] Sina Gonzales [facility] [address] [facility],[place] [address] 09/03/2019 10:50:45 09/03/2019 11:27:14 Essential hypertension 97182172 I10 will try starting patient on lisinopril will f/u in two weeks [id number] Sina Gonzales [facility] [address] [place] [address] 09/17/2019 10:17:13 09/17/2019 11:16:34 Gastroesophageal reflux disease 682597628 K21.0 waiting on back ordered script using FDgard for the time being Dizziness 742163038 R42 is being seen by ENT > 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's ear will f/u at ENT for second opinion Diaz's esophagus 3029 09686 K22.70 send for referral for surgery consult [id number] Sina Gonzales DO [facility] [address] [facility],[place] [address] 09/27/2019 11:32:57 09/27/2019 14:10:03 Right upper quadrant pain 662171316 R10.11 patient has a positive Bernstein's sign on exam RUQ pain and related to eating heavy fat meal will f/u after US results Fatigue 66584999 R53.83 as per HPI discussion [id number] Sina Gonzales DO [facility] [address] [facility] [address] 10/11/2019 10:25:52 10/11/2019 15:20:49 Fatigue 38797755 R53.83 will have pt do these labs so he does not have to pay out of pocket for them discussed what labs he already has done Kidney stone 98434791 N2 0.0 take medication if start to develop symptoms of pyelonephr itis including increase in pain around kidneys, fever Gastroesop hageal reflux disease 610437922 K21.0 has appt with specialist [id number] Sina Gonzales DO [facility] [address] [facility],[place] [address] 11/06/2019 10:11:55 11/06/2019 13:53:26 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 but not antibodies , following with [facility] e [facility] History of calculus of kidney 195058044 Z87.442 would like to be tested for PH-1 mutation > will evaluate kidneys Headache 35474521 R51 still have intermitte nt severe headaches but BP has been good > has fu with neuro Constipation 39054503 K5 9.00 related to use of oxycotin [id number] Sina Gonzales DO [facility] [address] [facility],[place] [address] 12/17/2019 09:31:02 12/17/2019 09:57:15 Multiple benign melanocytic nevi 192561432 D22.9 would like referral for evalutatio n Food poisoning 75399803 A05.9 resolved Essential hypertension 11851899 I10 the patient BP is excellent today Butterfly rash 90682711 R21 will check a rheumatoid panel [id number] Sina Gonzales [facility] [address] [facility], [place] [address] 01/07/2020 14:40:44 01/07/2020 15:31:58 Bite of spider 487231001 W57.XXXA the patient will keep wound clean with antibiotic soap will watch to make sure the patient doesn't have any worsening or spread Contact dermatitis 53599 004 L25.9 will treat with steriod cream to prevent spread [id number] Sina Gonzales [facility] [address] [facility],[place] [address] 01/31/2020 10:52:24 01/31/2020 12:04:15 Essential hypertension 38822418 I10 the patient BP is elevating needs to start back on lisinopril at half a tab Anxiety 16613517 F41.9 stable History of calculus of kidney 081445944 Z87.442 [facility] patient no one else here takes his insurance [id number] Sina Gonzales [facility] Internal Medicine [address] [facility],[place] [address] 02/18/2020 13:44:53 02/18/2020 14:44:54 Anxiety 18890302 F41.9 will start on sertraline Bite of spider 294600856 W57.XXXA the patient will keep wound clean with antibiotic soap will watch to make sure the patient doesn't have any worsening or spread Essential hypertension 97095119 I10 will increase to 15 mg and then 20 mg [id number] Sina Gonzales [facility] Internal Medicine [address] [facility], [place] [address] 03/18/2020 08:17:34 03/18/2020 16:09:33 Essential hypertension 16474939 I10 needs to be cut back down to 5 mg and start a BB Palpitations 91568963 R0 0.2 will fu after start of medication s and see if improvemen t Orthostati c hypotension 64873823 I95.1 will see if med adjustment helps with this Anxiety 16866964 F41.9 will call when he wants to start on wellbutrin [id number] Sina Gonzales DO [facility] Internal Medicine [address] [facility], [place] [address] 05/29/2020 08:25:46 05/29/2020 16:36:44 Low back pain 066388617 M54.5 sprain/MSK injury from impact trauma will fu as needed Kidney stone 32949807 N2 0.0 will send referral to [facility], patient feels he is developing another stone, will call if symptoms worsen and he has yet to obtain and appt for uro and develops worsening pain and fever Essential hypertension 52852590 I10 doing well with BP medication at 7 mg [place] [id number] Sina Gonzales [facility] Internal Medicine [address] [facility],[place] [address] 08/17/2020 14:39:23 08/18/2020 09:10:23 Bite of spider 948379932 W57.XXXA the patient will keep wound clean with antibiotic soap will watch to make sure the patient doesn't have any worsening or spread Active or passive immunization 303253466 Z23 will fu with booster [id number] Sina Gonzales [facility] Internal Medicine [address] [facility] [place] [address] 10/19/2020 13:28:45 10/19/2020 14:19:55 Active or passive immunization 879868677 Z23 will fu with booster Adult [facility] examination 085843770 Z00.00 BP 120/78 which is excellent Hyperparathyroidism 6699 9008 E21.3 will set up referral for him Kidney stone 60558378 N2 0.0 will send referral to [facility], patient feels he is developing another stone, will call if symptoms worsen and he has yet to obtain and appt for uro and develops worsening pain and fever [id number] Sina Gonzales [facility] Internal Medicine [address] [facility], [place] [address] 02/16/2021 15:33:11 02/16/2021 17:09:51 Spasm 66005555 R25.2 needs refill Acute pain of joint of knee 5557375901 19185 M25.562 suggested ICE, NSAIDs, elevation and bracing Cavernous hemangioma of brain 415000092 D18.02 stable [id number] Sina Gonzales [facility] Internal Medicine [address] [facility],[place] [address] [address] [place] [address] 11/01/2021 08:17:38 11/01/2021 09:18:51 Essential hypertension 18442313 I10 will f/u with patient after surgery [id number] Sina Gonzales [facility] Internal [facility] [address] [facility],[place] [facility] [address] 02/07/2022 11:42:46 02/08/2022 10:51:32 Localized swelling of left lower leg 5941511787 4697155 R22.42 will fu with US, not STAT Asthma 510214129 J45.20 will submit for refills Tinea pedis 4178761 B35. 3 will start on ketoconazo le cream [id number] Sina Gonzales [facility] Internal Medicine [address] [facility],[place] [employer] [place] [address] 04/05/2022 13:44:49 04/05/2022 16:50:37 Asthma 561192068 J45.20 will submit for refills Injury of face 515579321 S07.0XXA will need XRs facial Rib pain 791802708 R07.8 1 will XR ribs Candidiasis of skin 4988 3006 B37.2 will restart the diflucan Nausea and vomiting 1692 1999 R11.2 will refill Concussion injury of brain 329658297 S06.0X0A will monitor brain injury [id number] Sina Gonzales [facility] Internal Medicine [address] [facility],[place] [address] 08/24/2022 11:11:31 08/24/2022 14:47:43 Cavernous hemangioma of brain 645545767 D18.02 stable Hyperparathyroidism 6699 9008 E21.0 will set up referral for him Nausea and vomiting 1692 1999 R11.2 will refill for patient Essential hypertension 56323245 I10 stable Screening for malignant neoplasm of prostate 341301504 Z12.5 will give him a print out [id number] Sina Gonzales [facility] Internal Medicine [address] [facility],[place] [address] 11/02/2022 09:42:14 11/04/2022 14:22:05 Asthma 201936665 J45.20 stable Hyperparathyroidism 6699 9008 E21.0 stable Diaz's esophagus 3029 99125 K22.70 stable Kidney stone 37145026 N2 0.0 will set up with tamsulosin has increased his water intake Essential hypertension 91337114 I10 stable [id number] Sina Gonzales [facility] Internal Medicine [address] [facility],[place] [address] 12/19/2022 14:15:50 12/19/2022 15:42:01 Asthma 985162848 J45.20 stable Gastroesop hageal reflux disease 740252565 K21.9 stable Abdominal pain 66405463 R10.0 will set up iwth [id number] Sina Gonzales [facility] Internal Medicine [address] [facility],[place] [address] 08/16/2023 09:52:44 08/18/2023 13:19:09 Essential hypertension 83346373 I10 stable Depression screening 171 413273 Z13.31 negative Anxiety 25854861 F41.1 stable Asthma 516666670 J45.20 needs new refill Bite of spider 374021138 W57.XXXA stable, needs refill Spasm 02099533 R25.2 needs refill Gastroesop hageal reflux disease 406072699 K21.9 stable Pain of le ft knee joint 4587064200 67916 M25.562 needs to start with knee XR to get MRI 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 Hyperparathyroidism 6699 9008 E21.0 stable [id number] Sina Gonzales [facility] Internal Medicine [address] [facility], [place] [address] 11/27/2023 09:39:52 11/27/2023 10:26:20 Renewal of prescription 944257614 Z76.0 advised Family his tory of Cardiovascular disease 586555579 Z82.49 carlie set up with [address] coronary Kidney stone 71188120 N2 0.0 can use for the prostateha ving more frequency Asthma 071397021 J45.20 needs new refill Nausea and vomiting 1693 2000 R11.2 will refill for patient Screening for malignant neoplasm of prostate 714571788 Z12.5 will give him a print out Fatigue 77107608 R53.83 needs recheck levels [id number] Sina Gonzales [facility] Internal Medicine [address] [facility], [place] [address] 01/08/2024 11:03:30 01/09/2024 08:23:25 Exposure to Listeria moncytogenes 2511043346 34540 Z20.818 agreed to stool panel and r/o any possible listeria infection Screening for malignant neoplasm of prostate 859440283 Z12.5 will set up with screening every 3 to 6 mos [id number] Sina Gonzales [facility] Internal Medicine [address] [facility], [place] [employer] [address] 02/13/2024 10:37:28 02/13/2024 11:16:16 Anxiety 82395582 F41.1 stable Essential hypertension 30444932 I10 stable Post-acute COVID-19 1119 506474 U09.9 thrush, cough, sob and BP issues Candidiasis of mouth 797 67245 B37.0 improving Bite of spider 036218599 W57.XXXA stable, needs refill Gastroesop hageal reflux disease 637179422 K21.9 stable [id number] Sina Gonzales [facility] Internal Medicine [address] [facility], [place] [employer] [address] 03/04/2024 10:05:06 03/04/2024 14:24:21 Acute tonsillitis 97451119 J03.01 add pred to treatment [id number] Sina Gonzales [facility] Internal Medicine [address] [facility], [place] [address] 04/10/2024 11:16:43 04/10/2024 11:43:40 Essential hypertension 44480824 I10 stablechan ge to 10 mg BID lisinopril Cavernous hemangioma of brain 060882259 D18.02 stable Anxiety 15657152 F41.1 stable [id number] Sina Gonzales [facility] Internal Medicine [address] [facility],[place] [employer] [place] [address] 05/01/2024 10:24:45 05/01/2024 11:18:40 Fall W19.XXXA will set up with f/u XR Pain of ri ght knee joint 0287328598 91830 M25.561 no XR, didn't hurt at the time, will XR now Laceration of lower leg 618686790 S81.811A healing Pain of le ft knee joint 6187595276 39705 M25.562 needs to start with knee XR to get MRI [id number] Sina Gonzales [facility] Internal Medicine [address] [facility],[place] [address] 06/21/2024 10:12:20 06/21/2024 15:02:39 Essential hypertension 11271956 I10 stablechan ge to 10 mg BID lisinopril Atypical chest pain 1025 09583 R07.89 recommende d f/u with stress test and echo Family his tory of Multiple sclerosis 099590685 Z82.0 agreed to MRI given fam hx and on and off headaches, weakness, [id number] [facility] [address] [facility],[place] [address] 08/05/2024 10:08:16 08/05/2024 13:39:16 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 will recheck levels Muscle pain 44043989 M79 .10 will set up with lab work Essential hypertension 77522929 I10 stable Pain in left foot 769440 2923 85750 M79.672 will set up with Health Concerns Section Related Observation LastModified by Organization Arelis cornelius LastModified Time None Recorded Concern Status LastModified by Organization Details LastModified Time None Recorded Advance Directives Directive None Recorded Payers Encounter Date Sequence Insurance Name Policy Number Policy Mcneil Covered Member ID Mcneil Member ID Guarantor Name 03/04/2024 1 [place] Bo Lewis [id number] Betzy Lewis 04/10/2024 1 [place] Betzy Lewis [id number] Betzy Lewis 05/01/2024 1 [place] Betzy Lewis [id number] Betzy Lewis 06/21/2024 1 [place] Betzy Lewis [id number] Betzy Lewis 08/05/2024 1 [place] Betzy Lewis [id number] Betzy Lewis Notes Date Note Type Note Provider Name a nd Address Organization Details Recorded Time 4 text/html c/o sore throat The patient is participating in this appointment via telemedicine communication with a phone call/video calling service (Andel)The patient consents to use of these platforms [...] change out tooth brush JESSICA NAVA [address] [place], [address], [facility] [place] 03/04/2024 14:09:51 5 text/html f/u HTN HTN: today in the office the patient BP is 118/78 L armthe patient is doing well on the BP medication with no side effects and no adjustment of their medications needed today at the appointmentzandra-eliseo farmer on medicationdenies chest pain, sob, ankle swelling, orthopnea, palpitations anxiety: stable on medication JESSICA NAVA [address] [place], [address], [facility] [place] 04/10/2024 11:32:19 5 text/html ER f/u the patient reports he tripped over a shopping cart recommended repeat XR's and start on meloxicam the patient's abrasions are improving, no signs of infectionstill tender will continue to monitor and keep clean JESSICA NAVA [address] [place], [address], [facility] [place] 05/01/2024 11:04:13 5 text/html c/o [...] calcium score was good pt mother has MS JESSICA ANVA [address] [place], [address], [facility] [place] 06/21/2024 10:57:09 5 text/html f/u review images the patient is doing well reviewed the MRI and stress exercise testnormal findings, no changes of cavernous hemangioma of brain today in the office the patient BP is 114/68 L armthe patient is doing well on the BP medication with no side effects and no adjustment of their medications needed today at the appointmentwell-contr olled on medicationdenies chest pain, sob, ankle swelling, orthopnea, palpitations the patient has been having issues with taste, the muscle cramping, msk chest pain, brain fog, left eye changes (has eye appt) the patient reports otherwise no health changes JESSICA NAVA [address] [place], [address], [facility] [place] 08/05/2024 10:40:09
[2024-08-14 07:44] LABS: MANUAL DIFF FLAG NO
[2024-08-14 07:54] LABS: Basophils Percent Auto 0.6 % (0-2); Eosinophils Absolute Auto 0.2 X10*3/uL (0.0-0.4); Eosinophils Percent Auto 2.5 % (0-4); Hematocrit 49.4 % (42.0-52.0); Hemoglobin 17.1 g/dl (14.0-18.0); Imm Gran Abs Auto 0.02 X10*3/uL (0.00-0.03); Imm Gran Pct Auto 0.3 % (0.0-0.4); Lymphocytes Absolute Auto 2.8 X10*3/uL (1.2-4.9); Lymphocytes Percent Auto 38.4 % (20-40); Mean Corpuscular HGB Conc 34.6 g/dl (31.0-36.0); Mean Corpuscular Hemoglobin 30.2 pg (27.0-33.0); Mean Corpuscular Volume 87.1 fL (80.0-98.0); Mean Platelet Volume 9.6 fL (9.4-12.4); Monocytes Absolute Auto 0.6 X10*3/uL (0.1-1.2); Monocytes Percent Auto 8.1 % (2-11); Neutrophils Absolute Auto 3.6 x10*3/uL (2.0-8.3); Neutrophils Percent Auto 50.1 % (45-73); Platelet Count 257 X10*3/uL (160-400); Red Blood Count 5.67 X10*6/uL (4.60-5.80); Red Cell Distribution Width 11.5 % (11.0-16.0); White Blood Count 7.2 X10*3/uL (4.8-10.8)
[2024-08-14 08:23] LABS: Alanine Aminotransferase 27 U/L (0-40); Albumin Level 4.8 g/dL (3.5-5.0); Alkaline Phosphatase 46 U/L (39-117); Anion Gap 13 (12-20); Aspartate Amino Transferase 24 U/L (5-37); Bilirubin Total 0.8 mg/dL (0.0-1.0); Blood Urea Nitrogen 15 mg/dL (9-16); C Reactive Protein 0.22 mg/dL (< or = 0.50); Calcium 9.5 mg/dL (8.4-10.2); Carbon Dioxide 29 mmol/L (22-29); Chloride 103 mmol/L (96-108); Estimated Glomerular Filt Rate 60; Glucose Random 95 mg/dL (60-115); Iron 162 mcg/dL (45-160); Percent Iron Saturation 55 % (15-50); Potassium 3.9 mmol/L (3.3-5.1); Sodium 141 mmol/L (135-145); Total Iron Binding Capacity 296 mcg/dL (228-428); Total Protein 7.6 g/dL (6.5-8.0); Unsaturated Iron Binding 134 ug/dL
[2024-08-14 08:51] LABS: Folate 15.9 ng/mL (> or = 4.0); Vitamin B12 1925 pg/mL (200-900)
[2024-08-14 08:59] LABS: Erythrocyte Sedimentation Rate 1 MM/HR (0-15)
[2024-08-14 10:37] LABS: Uric Acid 6.6 mg/dL (3.4-7.0)
[2024-08-15 18:20] LABS: Lyme Abs Screen <0.90 index
[2024-08-16 13:24] LABS: Anti Nuclear Antibody Screen NEGATIVE (NEGATIVE)
[2024-08-16 23:03] LABS: A. Phagocytophilum Ab IgG <1:64 (<1:64); A. Phagocytophilum Ab IgM <1:20 (<1:20); E. Chaffeensis Ab IgG <1:64 (<1:64); E. Chaffeensis Ab IgM <1:20 (<1:20)
== END 2024-08-14 07:30 | disposition home or self-care (01) ==
LOC: HO.LAB 07:29
PROVIDERS: PCP Internal Medicine; Visit Provider Physician Assistant
DX: U09.9 Post COVID-19 condition, unspecified (principal); M79.10 Myalgia, unspecified site
CPT/HCPCS: 36415; 80053; 82550; 82607; 82746; 83540; 84550; 85025; 85652; 86038; 86140; 86617; 86618; 86666